=== PATIENT | female | born 1925 | race Caucasian/White ===

== ENCOUNTER 2017-02-14 14:46 | Inpatient (IN) | payer MEDICARE, OTHER ==
[2017-02-14 15:19] LABS: #Eosinphils 0.3 thou/uL (0.0-0.7); #Lymphocytes 1.7 thou/uL (1.20-3.40); #Monocytes 0.6 thou/uL (0.11-0.59); #Neutrophils 3.5 thou/uL (1.40-6.50); %Basophils 0.1 % (0.0-1.0); %Eosinophils 4.8 % (0.0-10.0); %Lymphocytes 27.8 % (21.0-51.0); %Monocytes 10.3 % (0.0-10.0); Hematocrit 36.9 % (36.0-47.0); Mean Platelet Volume 7.8 fL (7.4-10.4); Red Blood Cell (RBC) Count 3.75 mill/uL (4.20-5.40); White Blood Cell (WBC) Count 6.1 thou/uL (4.8-10.8)
[2017-02-14 15:44] LABS: ALT (SGPT) 14 U/L (8-55); AST (SGOT) 20 U/L (5-34); Alkaline Phosphatase 65 U/L (40-150); Anion Gap 15 mmol/L (10-20); BUN (Urea Nitrogen) 20 mg/dL (9.8-20.1); Bilirubin, Total 0.4 mg/dL (0.2-1.2); Calc. Creatinine Clearance 0 mL/min (70-130); Calcium 8.9 mg/dL (7.8-10.44); Carbon Dioxide 24 mmol/L (23-31); Chloride 105 mmol/L (98-107); Estimated GFR-MDRD 39; Globulin 2.8 g/dL (2.4-3.5); Protein, Total 6.4 g/dL (6.0-8.3)
[2017-02-14 15:46] LABS: Troponin I Less than 0.010 ng/mL (< 0.028)
--- NOTE | 2017-02-14 16:34 | CT ---
CT HEAD WITHOUT IV CONTRAST: Date: 02-14-17 History: Syncope just prior to arrival. Patient fell after passing out. Patient unconscious for 3-4 minutes. Abnormal breathing while unconscious. Vomiting. Comparison: 11-26-11 FINDINGS: There is decreased attenuation in the periventricular white matter, most likely reflective of chroni c small vessel ischemic changes which have mildly progressed from the prior exam. There is no acute cortical infarction, hemorrhage, mass effect, or midline shift. There is mild cerebral and cerebella r volume loss. The ventricular system is normal in size, shape, and position for the degree of sulca l atrophy. There has been no other interval change from prior exam. No calvarial fracture is seen. IMPRESSION: 1. No acute intracranial abnormalities demonstrated. 2. Moderate to severe chronic small vessel ischemic changes. 3. Cerebral and cerebellar volume loss. POS: ROSHAN
--- NOTE | 2017-02-14 16:47 | RAD ---
PORTABLE AP CHEST: Date: 02-14-17 History: Witnessed syncopal episode. Vomiting. Comparison: 11-26-11 FINDINGS: Cardiac silhouette and pulmonary vasculature are within normal limits. Lungs are clear. Vascular selma cifications are again seen in the thoracic aorta. There has been no interval change from the prior e xam. IMPRESSION: No acute cardiopulmonary process. POS: [facility]
[2017-02-14] MEDS ORDERED: Mag-Al 1200 mg/1200 mg/30 ML UDCUP PO PRN (17:05)
[2017-02-14] MEDS ORDERED: Nitroglycerin 0.4 MG TAB (25 Tab Bottle) SL PRN (17:05)
[2017-02-14] MEDS ORDERED: Loratadine 10 MG TAB PO PRN (17:05)
[2017-02-14] MEDS ORDERED: Diabetic Tussin 200 MG/10 ML UDCUP PO PRN (17:05)
[2017-02-14] MEDS ORDERED: Ondansetron HCl/PF 4 MG/2 ML Vial IVP PRN (17:05)
[2017-02-14] MEDS ORDERED: Senokot 8.6 MG TAB PO PRN (17:05)
[2017-02-14] MEDS ORDERED: cloNIDine HCl 0.1 MG TAB PO PRN (17:05)
[2017-02-14] MEDS ORDERED: Acetaminophen 325 MG TAB PO PRN (17:05)
[2017-02-14] MEDS ORDERED: Bisacodyl 5 MG TAB PO PRN (17:05)
[2017-02-14] MEDS ORDERED: Benzonatate 100 MG CAP PO PRN (17:05)
[2017-02-14 18:49] LABS: Troponin I Less than 0.010 ng/mL (< 0.028)
[2017-02-14 19:18] VITALS: BMI 18.1
--- NOTE | 2017-02-14 19:36 | HP ---
DATE OF ADMISSION: 02/14/2017 PRIMARY CARE PHYSICIAN: Dr. Narayanan at [facility]. CHIEF COMPLAINT: Syncope. HISTORY OF PRESENTING ILLNESS: Ms. Summers is a very pleasant 89-year-old female, who was brought in by her care provider for complaints of passing out. History is mainly obtained by the pa arturo herself, who has regained consciousness and is awake, alert, and oriented x4. Electronic [facility] records have been reviewed and the case has been discussed with the attending ER physician. According to Ms. Summers, she lives in [facility] and has a care provider. They walk twice or three times a day. She walks with a help of a walker and has been feeling fine without any recent illnesses. She does not have any dizziness, lightheadedness, palpitations, ches t pain, shortness of breath this morning. While walking with the wood ski maker, she passed out and fell to the floor. She does not remember how long she was out for, but the report was that she was out for a few minutes and seemingly had some trouble breathing. Eventually, she came to and vomited. E MS was called and then she was brought to the hospital. By the time, she was seen in the emergency room, she was back to her baseline with normal mentation. She is otherwise very sharp and very acti ve with the help of the wood ski maker at home. She denies any recent illnesses. She denies any dysuria. She denies any nausea, vomiting, diarrhea or abdominal pain. She denies similar symptoms in the past. CT scan and chest x-ray was done in the emergency room and both were unremarkable. She does have ev idence of chronic small vessel ischemic changes on the CT scan of the brain, but nothing acute. Ser um chemistries are also unremarkable except for creatinine elevated at 1.30 with her baseline being normal. Cardiac enzymes are normal. She is now being admitted for syncope workup. PAST MEDICAL HISTORY: 1. Fibromyalgia. 2. Osteoarthritis. 3. Hypertension. 4. Hypothyroidism. PAST SURGICAL HISTORY: Include: 1. Hysterectomy. 2. Bladder suspension. 3. Cataract removal. 4. Colonoscopy. ALLERGIES: No known medication allergies. MEDICATIONS: Levothyroxine 75 mcg daily, Lexapro 20 mg daily, Wellbutrin 150 mg daily, losartan 50 mg daily, Lyrica 75 mg daily, trazodone 50 mg daily. They further will be confirmed. SOCIAL HISTORY: She lives in [facility] with the help of a wood ski maker. N o history of drug, tobacco or alcohol abuse. Her medical power of attorney law clerk is her daughter, who fahad es in [place]. CODE STATUS: Do not resuscitate, do not intubate. I have discussed this with the patient herself. FAMILY HISTORY: Significant for coronary artery disease. REVIEW OF SYSTEMS: The following complete review of systems was negative, unless otherwise mention ed in the HPI or below: CONSTITUTIONAL: Weight loss or gain, ability to conduct usual activities. SKIN: Rash, itching. EYES: Double vision, pain. ENT/MOUTH: Nose bleeding, neck stiffness, pain, tenderness. CARDIOVASCULAR: Palpitations, dyspnea on exertion, orthopnea. RESPIRATORY: Shortness of breath, wheezing, cough, hemoptysis, fever or night sweats. GASTROINTESTINAL: Poor appetite, abdominal pain, heartburn, nausea, vomiting, constipation, or diar jonnie. GENITOURINARY: Urgency, frequency, dysuria, nocturia. MUSCULOSKELETAL: Pain, swelling. NEUROLOGIC/PSYCHIATRIC: Anxiety, depression. ALLERGY/IMMUNOLOGIC: Skin rash, bleeding tendency. It is negative for expect for those mentioned in the history and physical. LABORATORY DATA: Her CBC is unremarkable. Hemoglobin 12.4. Serum chemistries show BUN 20 with cre atinine of 1.30. Blood sugar 127, magnesium is 2. Cardiac enzymes are normal. Liver enzymes are n ormal. Chest x-ray by my review has no evidence to suggest pulmonary infiltrate, effusion or edema. Cardiac silhouette is within normal limits. CT scan of the brain shows chronic small vessel ische hanh changes without anything acute. A 12 lead EKG showed normal sinus rhythm without any QT prolong ation. No ST or T-wave changes. PHYSICAL EXAMINATION: VITAL SIGNS: Blood pressure 132/67, pulse of 63, saturating 94% on room air, respirations 16, tempe rature 97.4. GENERAL: She appears age appropriate. Appears awake, alert and oriented x3, in no acute distress. Appears well nourished and well kempt. HEENT: Mucous membrane is moist and pink. No oropharyngeal exudate or erythema. Head is normoceph alic, atraumatic. Pupils equal, reactive to light and accommodation. Extraocular movements intact. NECK: Supple without any lymphadenopathy, JVD or bruit. CHEST: Clear to auscultation without any wheezing, rales or rhonchi. CARDIOVASCULAR: Rate and rhythm is regular without any murmur, rubs or gallops. ABDOMEN: Soft, nontender, nondistended with positive bowel sounds. EXTREMITIES: Free of any cyanosis, clubbing, or edema. NEUROLOGIC: Nonfocal. SKIN: Free of any rashes or bruises. Feels warm and dry to touch. PSYCHIATRIC: Patient appears euthymic with normal affect. VASCULAR: +2 pedal pulses felt bilaterally. IMPRESSION AND PLAN: 1. Syncope. The patient's presentations are suggestive of some sort of cardiac event. She had raymundo e sort of agonal breathing per report with the syncope. She will be admitted to telemetry [facility] for any arrhythmias at this time. We will obtain a transthoracic echocardiogram to rule out cardi omyopathy as well as valvular dysfunction. We will also obtain MRI of the brain to rule out stroke or masses and also obtain a carotid Doppler ultrasound to rule out circulation problems to the poste rior part. She will be resuscitated with IV fluids as some dehydration is evident by elevated creat inine. Otherwise, she is hemodynamically stable. We will also continue to trend serial cardiac enz ymes. The possibility of acute coronary syndrome is less likely at this time. We will also obtain a urinalysis to rule out urinary tract infection. Recheck labs in the morning and start her on fall and aspiration precautions. 2. History of hypothyroidism. We will restart her Synthroid once the dosage is confirmed. 3. Acute kidney insufficiency, likely due to vomiting today. She will be started on IV fluids and we will avoid nephrotoxic medications and recheck in the morning. 4. Deconditioning. We will request OT and PT to evaluate the patient. 5. History of hypertension. Resume home medications once confirmed. 6. Deep venous thrombosis and gastrointestinal prophylaxis. 7. CODE STATUS: DO NOT RESUSCITATE, DO NOT INTUBATE. DISPOSITION: The patient will be admitted to telemetry unit for syncopal episode. Further manageme nt will depend upon her clinical course. Estimated length of stay at this time is about 2-3 midnigh ts.
--- NOTE | 2017-02-14 21:28 | ULT ---
CAROTID ULTRASOUND WITH HARO SCALE AND DOPPLER DUPLEX COLOR FLOW IMAGING SPECTRAL ANALYSIS PERFORMED: 02/14/17 CLINICAL INDICATION: Syncope. FINDINGS: There is scattered mild atherosclerotic calcification of the carotid arteries. PEAK SYSTOLIC VELOCITY (CM/S): Right CCA 151 Left CCA 156 Right ICA 89 Left ICA 76 There is antegrade flow within the visualized bilateral vertebral arteries. IMPRESSION: 1. No hemodynamically significant stenosis of the right internal carotid artery. 2. No hemodynamically significant stenosis of the left internal carotid artery. POS: LAKISHA
[2017-02-14 21:58] LABS: Troponin I Less than 0.010 ng/mL (< 0.028)
[2017-02-14] MEDS: Sodium Chloride 0.9% 1,000 ML IV SCH (22:39)
[2017-02-14 23:35] LABS: Bilirubin Negative (Negative); Blood, Urine Negative (Negative); Glucose, Urine (Dipstick) Negative (Negative); Ketone, Urine Negative (Negative); Nitrite Negative (Negative); Protein, Urine (Dipstick) Trace mg/dL (Neg-Trace); Urobilinogen 0.2 mg/dL (0.2-1.0)
[2017-02-14 23:38] LABS: Bacteria/HPF Rare-Few HPF (None Seen); Hyaline Casts/LPF 0-3 HYALINE CAST LPF (0-3 Hyaline); Squamous Epithelial 0-3 HPF (0-3); WBC/HPF 0-3 HPF (0-3)
[2017-02-15 06:09] LABS: #Eosinphils 0.1 thou/uL (0.0-0.7); #Lymphocytes 2.4 thou/uL (1.20-3.40); #Monocytes 0.9 thou/uL (0.11-0.59); #Neutrophils 8.1 thou/uL (1.40-6.50); %Eosinophils 0.7 % (0.0-10.0); %Lymphocytes 21.2 % (21.0-51.0); %Monocytes 7.4 % (0.0-10.0); Mean Platelet Volume 8.3 fL (7.4-10.4); Red Blood Cell (RBC) Count 3.72 mill/uL (4.20-5.40); White Blood Cell (WBC) Count 11.5 thou/uL (4.8-10.8)
[2017-02-15 06:35] LABS: Anion Gap 11 mmol/L (10-20); BUN (Urea Nitrogen) 19 mg/dL (9.8-20.1); Calc. Creatinine Clearance 32 mL/min (70-130); Calcium 8.7 mg/dL (7.8-10.44); Carbon Dioxide 24 mmol/L (23-31); Chloride 108 mmol/L (98-107); Estimated GFR-MDRD 53
[2017-02-15] MEDS: Bupropion 150 MG XL TAB PO SCH (09:28)
[2017-02-15] MEDS: Enoxaparin Sodium 30 MG/0.3 ML SYRINGE SC SCH (09:29)
[2017-02-15] MEDS: Levothyroxine Sodium 75 MCG TAB PO SCH (09:30)
[2017-02-15] MEDS: Escitalopram Oxalate 20 mg Tablet PO SCH (09:30)
[2017-02-15] MEDS: cefTRIAXone\\ROCEPHIN 1 GM in Sodium Chloride 0.9% 100 ML IVPB SCH (09:36)
[2017-02-15] MEDS: Sodium Chloride 0.9% 1,000 ML IV SCH (09:36)
--- NOTE | 2017-02-15 13:37 | PDOC.PN ---
- Subjective Encounter Start Date: 02/15/17 Encounter Start Time: 13:35 Subjective: feels much better. walked w Pt .no dizziness -: no chest pain/palpitations/SOB/LOPEZ. -: no fever/chills - Objective Resuscitation Status: Resuscitation Status DNR:Do Not Resuscitate MAR Reviewed: Yes Vital Signs & Weight: Vital Signs (12 hours) Temp Pulse Pulse Pulse Resp BP BP 02/15/17 12:27 98.4 F 94 20 02/15/17 10:20 62 75 138/63 146/63 H 02/15/17 08:00 98.2 F 61 18 02/15/17 07:57 98.2 F 61 18 02/15/17 07:56 98.2 F 61 18 02/15/17 04:00 98.6 F 81 18 BP BP BP Pulse Ox Pulse Ox Pulse Ox 02/15/17 12:27 158/67 H 94 L 02/15/17 10:20 95 93 L 02/15/17 08:00 94 L 02/15/17 07:57 145/66 H 119/56 L 113/55 L 94 L 02/15/17 07:56 145/66 H 93 L 02/15/17 04:00 149/64 H 94 L Weight Weight 116 lb 3.2 oz I&O: 02/14/17 02/15/17 02/16/17 06:59 06:59 06:59 Intake Total 1011 Output Total 220 Balance 791 Result Diagrams: 02/15/17 05:19 02/15/17 05:19 Additional Labs: Microbiology 02/15/17 12:03 Nasopharynx - Nares Influenza Types A,B Direct EIA - Final Radiology Reviewed by me: Yes (Carotid doppler-no stenosis.ECHO-EF 60%.severe TR.Mod RI,MR) Phys Exam - Physical Examination Constitutional: NAD HEENT: PERRLA, moist MMs, sclera anicteric, TM's clear, oral pharynx no lesions , 2+ tonsils Neck: no nodes, no JVD, supple, full ROM Respiratory: no wheezing, no rales, no rhonchi, wheezing present, clear to auscultation bilateral Dx/Plan (1) Syncope and collapse Code(s): R55 - SYNCOPE AND COLLAPSE Status: Acute (2) EV (acute kidney injury) Code(s): N17.9 - ACUTE KIDNEY FAILURE, UNSPECIFIED Status: Resolved (3) Fever Code(s): R50.9 - FEVER, UNSPECIFIED Status: Acute Comment: low grade (4) Hypothyroid Code(s): E03.9 - HYPOTHYROIDISM, UNSPECIFIED Status: Chronic (5) Orthostatic hypotension Code(s): I95.1 - ORTHOSTATIC HYPOTENSION Status: Acute (6) HTN (hypertension) Code(s): I10 - ESSENTIAL (PRIMARY) HYPERTENSION Status: Chronic - Plan 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 -: syncope likley due to orthostatic hypotension.monitor.restart meds w cautio -: MRI brain pending.ECHO suggests prob diastolic dysFx but Pt asymptomatic -: arrange HH when ready for DC * . Review of Systems - Review of Systems Constitutional: negative: Fever, Chills, Sweats, Weakness, Malaise, Other Respiratory: negative: Cough, Dry, Shortness of Breath, Hemoptysis, SOB with Excertion, Pleuritic Pain, Sputum, Wheezing Cardiovascular: negative: Chest Pain, Palpitations, Orthopnea, Paroxysmal Noc. Dyspnea, Edema, Light Headedness, Other Gastrointestinal: negative: Nausea, Vomiting, Abdominal Pain, Diarrhea, Constipation, Melena, Hematochezia, Other Genitourinary: negative: Dysuria, Frequency, Incontinence, Hematuria, Retention , Other Musculoskeletal: negative: Neck Pain, Shoulder Pain, Arm Pain, Back Pain, Hand Pain, Leg Pain, Foot Pain, Other Neurological: negative: Weakness, Numbness, Incoordination, Change in Speech, Confusion, Seizures, Other - Medications/Allergies Allergies/Adverse Reactions: Allergies Allergy/AdvReac Type Severity Reaction Status Date / Time No Known Allergies Allergy Verified 02/15/17 00:55 Medications: Current Medications Acetaminophen (Tylenol) 650 mg PO Q4H PRN PRN Reason: Headache/Fever or Pain Last Admin: 02/14/17 22:59 Dose: 650 mg Al Hydroxide/Mg Hydroxide (Maalox) 30 ml PO Q6H PRN PRN Reason: Heartburn or Indigestion Benzonatate (Tessalon) 100 mg PO Q4H PRN PRN Reason: Cough Bisacodyl (Dulcolax) 10 mg PO DAILYPRN PRN PRN Reason: Constipation Bupropion HCl (Wellbutrin Xl) 150 mg PO DAILY [facility] Last Admin: 02/15/17 09:28 Dose: 150 mg Clonidine HCl (Catapres) 0.1 mg PO Q4H PRN PRN Reason: Systolic BP > 160 Donepezil HCl (Aricept) 10 mg PO HS [facility] Enoxaparin Sodium (Lovenox) 30 mg SC 0900 [facility] Last Admin: 02/15/17 09:29 Dose: 30 mg Escitalopram Oxalate (Lexapro) 20 mg PO DAILY [facility] Last Admin: 02/15/17 09:30 Dose: 20 mg Guaifenesin (Robitussin Sf) 200 mg PO Q4H PRN PRN Reason: Cough Hydralazine HCl (Apresoline) 10 mg SLOW IVP Q4H PRN PRN Reason: Systolic BP > 170 Sodium Chloride (Normal Saline 0.9%) 1,000 mls @ 75 mls/hr IV .[id number] [facility] Last Admin: 02/15/17 09:36 Dose: 1,000 mls Ceftriaxone Sodium 1 gm/ (Sodium Chloride) 100 mls @ 200 mls/hr IVPB Q24HR [facility] Last Admin: 02/15/17 09:36 Dose: 100 mls Levothyroxine Sodium (Synthroid) 75 mcg PO QAM [facility] Last Admin: 02/15/17 09:30 Dose: 75 mcg Loratadine (Claritin) 10 mg PO DAILYPRN PRN PRN Reason: Sinus Symptoms Memantine (Namenda) 10 mg PO DAILY [facility] Last Admin: 02/15/17 09:30 Dose: 10 mg Nitroglycerin (Nitrostat) 0.4 mg SL Q5MIN PRN PRN Reason: Chest Pain Ondansetron HCl (Zofran) 4 mg IVP Q6H PRN PRN Reason: Nausea/Vomiting Pregabalin (Lyrica) 75 mg PO HS [facility] Senna (Senokot) 2 tab PO HSPRN PRN PRN Reason: Constipation Sodium Chloride (Flush - Normal Saline) 10 ml IVF Q12HR [facility] Last Admin: 02/15/17 09:30 Dose: Not Given Sodium Chloride (Flush - Normal Saline) 10 ml IVF PRN PRN PRN Reason: Saline Flush Trazodone HCl (Desyrel) 50 mg PO HS [facility]
--- NOTE | 2017-02-15 17:04 | MRI ---
BRAIN MRI NONCONTRAST: Date: 02/15/17 INDICATION: Syncope. FINDINGS: There is parenchymal volume loss with compensatory dilatation of the ventricular system. There is no midline shift. No evidence of acute territorial infarction. There is moderate to severe chronic hanh rovascular ischemic disease. Skull base flow-voids are patent. There is bilateral mastoid fluid and mucosal thickening of the paranasal sinuses seen. IMPRESSION: 1. No acute territorial infarction or intracranial mass effect. 2. Additional findings are detailed above. POS: ROSHAN
[2017-02-15] MEDS ORDERED: traZODone HCl 50 MG TAB PO SCH (21:00)
[2017-02-15] MEDS ORDERED: Pregabalin 75 MG CAP PO SCH (21:00)
[2017-02-15] MEDS ORDERED: Donepezil HCl 10 MG TAB PO SCH (21:00)
[2017-02-16] MEDS: Sodium Chloride 0.9% 1,000 ML IV SCH ×2 (01:29→12:36)
[2017-02-16 05:34] LABS: #Eosinphils 0.1 thou/uL (0.0-0.7); #Lymphocytes 1.7 thou/uL (1.20-3.40); #Monocytes 0.9 thou/uL (0.11-0.59); #Neutrophils 5.1 thou/uL (1.40-6.50); %Basophils 0.5 % (0.0-1.0); %Eosinophils 1.1 % (0.0-10.0); %Lymphocytes 21.7 % (21.0-51.0); %Monocytes 11.9 % (0.0-10.0); Hematocrit 36.3 % (36.0-47.0); Mean Platelet Volume 8.1 fL (7.4-10.4); Red Blood Cell (RBC) Count 3.73 mill/uL (4.20-5.40); White Blood Cell (WBC) Count 7.8 thou/uL (4.8-10.8)
[2017-02-16 05:54] LABS: Anion Gap 10 mmol/L (10-20); BUN (Urea Nitrogen) 13 mg/dL (9.8-20.1); Calc. Creatinine Clearance 41 mL/min (70-130); Calcium 8.6 mg/dL (7.8-10.44); Carbon Dioxide 22 mmol/L (23-31); Chloride 111 mmol/L (98-107); Estimated GFR-MDRD 70
[2017-02-16] MEDS ORDERED: Losartan Potassium 25 MG TAB PO SCH (09:00)
[2017-02-16] MEDS: Bupropion 150 MG XL TAB PO SCH (09:06)
[2017-02-16] MEDS: Escitalopram Oxalate 20 mg Tablet PO SCH (09:06)
[2017-02-16] MEDS: Levothyroxine Sodium 75 MCG TAB PO SCH (09:07)
[2017-02-16] MEDS: Enoxaparin Sodium 30 MG/0.3 ML SYRINGE SC SCH (09:07)
[2017-02-16] MEDS: cefTRIAXone\\ROCEPHIN 1 GM in Sodium Chloride 0.9% 100 ML IVPB SCH (09:14)
[2017-02-16 13:09] VITALS: TEMP 98.9
[2017-02-16 13:14] VITALS: BP 144/60
--- NOTE | 2017-02-16 19:10 | DIS ---
DATE OF ADMISSION: 02/14/2017 DATE OF DISCHARGE: 02/16/2017 PRIMARY CARE PHYSICIAN: Dr. Corey Narayanan. DISCHARGE DIAGNOSES: 1. Orthostatic hypotension. 2. Syncope secondary to #1. 3. Early urinary tract infection. 4. Acute kidney injury, resolved. 5. Hypothyroidism. 6. Hypertension. DISCHARGE MEDICATIONS: Trazodone 50 mg daily, Lyrica 75 mg daily, donepezil 10 mg daily, memantine 10 mg daily, losartan new dose 25 mg daily, Limbrel 500 mg p.o. b.i.d., bupropion XL 150 mg daily, S ynthroid 75 mcg daily, and Lexapro 20 mg daily. New medication nitrofurantoin 50 mg q.i.d., for 4 m ore days. PROCEDURES DONE IN THE HOSPITAL: Include; 1. CT scan of the brain upon admission, which showed moderate to severe chronic small vessel ischem ic changes in cerebral and cerebellar volume loss, otherwise no acute intracranial abnormality. 2. Chest x-ray upon admission which was unremarkable. 3. Carotid Doppler ultrasound which was negative for any hemodynamically significant stenosis bilat erally. 4. MRI of the brain, which is negative for any acute infarction or mass effect. Moderate to chroni c PROCEDURES: 1. MRI of the brain is negative for any acute infarction or mass effect. 2. Transthoracic echocardiogram, which showed preserved ejection fraction of 60% -65%, but with mod erate mitral and pulmonic regurgitation, severe tricuspid regurgitation. ADMISSION HISTORY: Ms. 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 Upon presentation, her symptoms have resolved and she was awake, alert, oriented x3. A CT scan of the brain and chest x-ray and 12-lead EKG and card iac enzymes were done in the ER and were normal. She was admitted on telemetry for further evaluati on. Please see admission history and physical for further details. HOSPITAL COURSE: The patient was started on normal saline and orthostatics were checked. She was f ound to be significantly orthostatic with supine hypertension and hypotension on sitting position. She underwent workup including carotid Doppler ultrasound, transthoracic echocardiogram, and MRI of the brain. All of the imaging studies were unremarkable as above. At this time, her losartan dose has been decreased. She underwent a urine culture and blood cultures. Blood cultures have been neg ative till date. Influenza testing is negative and urine culture is pending. She did have one epis ode of low grade fever with some leukocytosis from her white cell count going up from 6.1-11.5 witho ut any left shift. Given these findings, she was empirically started on Rocephin as her urinalysis also showed some leukocyte esterase. At this time, the urine culture is pending and she will be emp irically treated with oral nitrofurantoin. She is instructed to follow up with her primary care angella deshpande with the results of the urine and blood cultures. She was seen and examined prior to discharge and is hemodynamically stable and eager to go home. Michelle benítez is still orthostatic, but with supine hypertension. For this reason, her losartan is reduced and she is instructed to take it towards the end of the day. She was given instructions to carefully ge t up from the supine position and take it rather slow. At this time, I am refraining from starting her on any pharmacological measures for her orthostatic hypotension given her high blood pressure on lying position. She will follow up with her primary care physician. She is instructed to stay hyd rated throughout the day. PHYSICAL EXAMINATION: VITAL SIGNS: Today include, temperature of 98.4, pulse of 68, respirations 20, saturating 93% - 96% on room air, blood pressure 175/77 and then 152/69 in supine position. GENERAL: No acute distress, awake, alert, oriented x3. She appears younger than her stated age and well nourished. Daughter is at the bedside. CHEST: Clear to auscultation without any wheezing, rales or rhonchi. Rate and rhythm is regular wi thout any murmur, rubs or gallops. ABDOMEN: Soft, nontender, nondistended, positive bowel sounds. LABORATORY EXAMINATION: Troponin less than 0.010 x3. TSH 1.295. Liver enzymes within normal limit s. CBC shows WBCs 7.8 with 64% neutrophils, platelet 167,000; hemoglobin 12.1. Urine culture and b lood cultures are pending at this time for final results. She will follow up with her primary care physician. Discharge plan was discussed with the patient a nd her daughter, who verbalized understanding. Total time spent 31 minutes.
== END 2017-02-16 15:02 | disposition home health service (06) | DRG 312 ==
LOC: ERS 14:46 → 2NO 18:39
PROVIDERS: ADMIT Internal Medicine; ATTEND Internal Medicine
DX: I95.1 Orthostatic hypotension (principal); N17.9 Acute kidney failure, unspecified; N39.0 Urinary tract infection, site not specified; E03.9 Hypothyroidism, unspecified; I10 Essential (primary) hypertension; M19.90 Unspecified osteoarthritis, unspecified site; Z66 Do not resuscitate; M79.7 Fibromyalgia
CPT/HCPCS: 36415; 70450; 70551; 71010; 80048; 80053; 81001; 82553; 83735; 84443; 84484; 85025; 87040; 87086; 93005; 93306; 93880; A4216; G8978-GP-CJ; G8979-GP-CH; G8987-GO-CJ; G8988-GO-CH; J0360; J0696; J1650; J2405; J7050

== ENCOUNTER 2017-04-28 06:33 | Inpatient (IN) | payer MEDICARE ==
[2017-04-28] MEDS ORDERED: Morphine 4 MG/ML VIAL ONE (07:05)
[2017-04-28 07:09] LABS: #Eosinphils 0.5 thou/uL (0.0-0.7); #Lymphocytes 3.8 thou/uL (1.20-3.40); #Monocytes 1.1 thou/uL (0.11-0.59); #Neutrophils 6.4 thou/uL (1.40-6.50); %Basophils 0.4 % (0.0-1.0); %Eosinophils 4.1 % (0.0-10.0); %Lymphocytes 32.2 % (21.0-51.0); Mean Platelet Volume 7.8 fL (7.4-10.4); Red Blood Cell (RBC) Count 3.93 mill/uL (4.20-5.40); White Blood Cell (WBC) Count 11.8 thou/uL (4.8-10.8)
[2017-04-28 07:22] LABS: PTT 27.4 SEC (22.9-36.1); Prothrombin Time 13.4 SEC (12.0-14.7)
[2017-04-28 07:46] LABS: ALT (SGPT) 19 U/L (8-55); AST (SGOT) 23 U/L (5-34); Alkaline Phosphatase 70 U/L (40-150); Anion Gap 13 mmol/L (10-20); BUN (Urea Nitrogen) 19 mg/dL (9.8-20.1); Bilirubin, Total 0.5 mg/dL (0.2-1.2); Calc. Creatinine Clearance 0 mL/min (70-130); Calcium 9.3 mg/dL (7.8-10.44); Carbon Dioxide 24 mmol/L (23-31); Chloride 106 mmol/L (98-107); Estimated GFR-MDRD 45; Globulin 2.7 g/dL (2.4-3.5); Lipase 42 U/L (8-78); Protein, Total 6.4 g/dL (6.0-8.3)
--- NOTE | 2017-04-28 07:51 | RAD ---
PORTABLE AP CHEST XRAY: DATE: 04/28/17. HISTORY: Left hip injury after a fall. Left hip pain. COMPARISON: 02/14/17. FINDINGS: Cardiac silhouette and pulmonary vasculature are within normal limits. Vascular calcifications are s een in the thoracic aorta. There is minimal patchy density at the left lung base which may be relate d to atelectasis, but developing area of pneumonitis could not be entirely excluded. Minimal linear densities are seen in the right mid lung zone which may be related to atelectasis or minimal scarring . Lungs are otherwise clear. No other interval change. IMPRESSION: Minimal patchy density at the lateral left lung base which may be related to either atelectasis or de veloping area of pneumonitis. Followup PA and lateral chest x-ray would be helpful for further evalu ation. POS: Hillary
--- NOTE | 2017-04-28 08:04 | RAD ---
AP VIEW PELVIS: DATE: 04/28/17. HISTORY: Left hip injury after a fall. The patient reports getting up to go to the bathroom with walker and l ost balance and got tangled in wheel of walker causing the patient to fall. The patient now has left hip pain. FINDINGS: There is an intertrochanteric left hip fracture with varus angulation of the fracture fragments. No additional fracture is identified. There is no dislocation. Degenerative changes are seen in the sp ine. Vascular calcifications and phleboliths overlie the pelvis. IMPRESSION: Angulated left intertrochanteric hip fracture. POS: C
--- NOTE | 2017-04-28 08:04 | RAD ---
LEFT HIP: Two views. HISTORY: Injury to left hip with pain. FINDINGS/IMPRESSION: There is an intertrochanteric fracture at the left hip with mild displacement and angulation. POS: ROSHAN
[2017-04-28] MEDS ORDERED: Ondansetron HCl/PF 4 MG/2 ML Vial IVP PRN (10:17)
[2017-04-28] MEDS ORDERED: Ondansetron ODT 4 MG TAB PO PRN (10:17)
[2017-04-28] MEDS ORDERED: Dextrose 5 %-0.45 % NaCl 1,000 ML IV SCH (10:30)
[2017-04-28] MEDS ORDERED: Dextrose 50% Abboject 50 ML SYRINGE SLOW IVP PRN (10:50)
[2017-04-28] MEDS ORDERED: hydrALAZINE 20 MG/ML VIAL SLOW IVP PRN (10:50)
[2017-04-28] MEDS ORDERED: Dextrose 5% in Water 1,000 ML IV PRN (10:50)
[2017-04-28] MEDS: D5 1/2 NS w/20 mEq KCL 1,000 ML IV SCH ×2 (12:04→20:43)
[2017-04-28] MEDS ORDERED: Morphine 4 MG/ML VIAL SLOW IVP SCH (14:15)
[2017-04-28] MEDS ORDERED: Milk Of Magnesia 30 ML UDCUP PO PRN (14:40)
[2017-04-28] MEDS ORDERED: Bisacodyl 5 MG TAB PO PRN (14:40)
[2017-04-28] MEDS ORDERED: traZODone HCl 50 MG TAB PO PRN (14:40)
[2017-04-28] MEDS ORDERED: Loperamide HCl 2 MG CAP PO PRN (14:40)
[2017-04-28] MEDS ORDERED: Benzonatate 100 MG CAP PO PRN (14:40)
[2017-04-28] MEDS ORDERED: Morphine 4 MG/ML VIAL SLOW IVP PRN (14:42)
--- NOTE | 2017-04-28 14:56 | HP ---
DATE OF ADMISSION: 04/28/2017 ADMITTING PHYSICIAN: Dr. Kwan Tubbs. CONSULTING PHYSICIAN: Dr. Sanchez, Orthopedics; Dr. Wu, Cardiology and Hospital Medicine. HISTORY OF PRESENT ILLNESS: Patient is an 89-year-old female, who was in her usual state of health this morning when she was ambulating to the bathroom with her walker in her assisted living apartment. She reports she got her legs tangled up in her walker and fell to the ground line landing on her left hip. She was able to use her alert button to summon help. She was then transported to [facility] via EMS. She has remained hemodynamically stable and neurologically intact during transport and evaluation. She complains of left hip pain that is worsened with movement and palpation. Current severity of pain is 10/10 with movement. She states she fell approximately 3 years ago as well. Fall did not result in fracture or injury. The patient is not an accurate historian. She does relate a history of hypertension. Review of the record from admission in 02/2017. PAST MEDICAL HISTORY: 1. Fibromyalgia. 2. Osteoarthritis. 3. Hypertension. 4. Hypothyroidism. PAST SURGICAL HISTORY: 1. Hysterectomy. 2. Bladder suspension. 3. Cataract removal. 4. Colonoscopy. SOCIAL HISTORY: Patient denies drugs, alcohol, or tobacco use. She states she lives in [facility] assisted living facility in her own apartment. FAMILY HISTORY: Patient relates that mother at an early age from rabies. Father, sister, and brother have all had unknown heart problems. REVIEW OF SYSTEMS: CONSTITUTIONAL: The patient denies weight loss or gain. Denies fever, chills or change in appetite. HEENT: Denies any current problems. No change in vision. CARDIOVASCULAR: The patient reports that she has had irregular heart rate since admission to the ER today. She denies ever having a history of irregular heartbeat. RESPIRATORY: Denies shortness of breath, wheezing, or cough. GASTROINTESTINAL: Denies nausea, vomiting, diarrhea or constipation. MUSCULOSKELETAL: Reports pain to the left lateral thigh area with movement. No sensory deficit. NEUROLOGIC: Denies any focal weakness. No seizures. LABORATORY DATA: CBC: WBC 11.8, RBC 3.93, hemoglobin 12.9, hematocrit 38.0, and platelets 204. Coags: PT 13.4, INR 1.0, aPTT 27.4. Chemistry: Sodium 139 , potassium 3.7, chloride 106, carbon dioxide 24, anion gap 13, BUN 19, creatinine 1.14 and glucose 100. DIAGNOSTIC IMAGING: Left hip intertrochanteric fracture with mild displacement and angulation. CURRENT MEDICATIONS: Bupropion 150 mg p.o. daily, donepezil 10 mg p.o. at bedtime, escitalopram 20 mg p.o. daily, Duexis 1 tablet p.o. at bedtime, levothyroxine 75 mcg p.o. q.a.m., losartan 25 mg p.o. at bedtime, memantine 10 mg p.o. at bedtime, Lyrica 75 mg p.o. at bedtime and trazodone 50 mg p.o. at bedtime. PHYSICAL EXAMINATION: VITAL SIGNS: Blood pressure 137/71, pulse 87, respirations 17, temperature 98.4 , O2 sat 96% on room air. GENERAL: Elderly female in no acute distress. Nontoxic. HEENT: Normocephalic, atraumatic. PULMONARY: Respirations even and unlabored. Bilateral breath sounds. LUNGS: Clear to auscultation. CARDIOVASCULAR: Rate normal, irregular rhythm. Heart sounds normal. ABDOMEN: Soft, nontender, nondistended. EXTREMITIES: Pain with movement to the left hip. All other extremities within normal limits. Neurovascularly intact. Cap refill brisk. NEUROLOGIC: Awake, alert, oriented x3. GCS 15. Speech, normal. ASSESSMENT: 1. An 89-year-old female status post ground level fall. 2. Left intertrochanteric hip fracture. 3. New onset atrial fibrillation. PLAN: 1. Admit to telemetry floor by Trauma services. 2. Consult to Dr. Sanchez, Orthopedics. 3. Consult to Dr. Wu, Cardiology. 4. Consult to hospital medicine for general medical management. 5. N.p.o., IV fluids, IV analgesia. 6. Discussed code status with the patient. The patient reports she is DNR. I discussed with patient at length. History, review of systems, physical exam, assessment and plan were discussed with attending surgeon, Dr. Tubbs, who agrees. [facility]
[2017-04-28 15:43] VITALS: BMI 24.7
[2017-04-28] MEDS: Carvedilol 3.125 MG TAB PO SCH (16:13)
[2017-04-28] MEDS: HYDROcodone/Acetaminophen 5/325 mg Tablet PO PRN (16:13)
--- NOTE | 2017-04-28 16:54 | RAD ---
LEFT FEMUR 4 VIEWS: Date: 04/28/17 HISTORY: Left hip fracture. FINDINGS/IMPRESSION: There is displaced and angulated intertrochanteric fracture proximal left femur. Distal femur appears intact. The femoral condyles are not well evaluated due to poor positioning. POS: ROSHAN
[2017-04-28 16:59] LABS: Bilirubin Negative (Negative); Blood, Urine Negative (Negative); Glucose, Urine (Dipstick) Negative (Negative); Ketone, Urine Negative (Negative); Nitrite Negative (Negative); Protein, Urine (Dipstick) Negative (Neg-Trace); Urobilinogen 0.2 mg/dL (0.2-1.0)
[2017-04-28 17:02] LABS: Bacteria/HPF None Seen HPF (None Seen); Hyaline Casts/LPF 0-3 HYALINE CAST LPF (0-3 Hyaline); RBC/HPF 0-3 HPF (0-3); Squamous Epithelial None Seen HPF (0-3); WBC/HPF 0-3 HPF (0-3)
--- NOTE | 2017-04-28 17:49 | CON ---
DATE OF CONSULTATION: 04/28/2017 CHIEF COMPLAINT: Left hip pain. HISTORY OF PRESENT ILLNESS: Ms. Summers is status post fall. The patient has been on the walker last 1 to 1-1/2 years, history of recent falls and syncopal episodes. She rates her pain currently 5 to 8/10. The patient was consulted by General Surgery Trauma as well as the ER Dr. Reilly for left hip p ain. PAST MEDICAL HISTORY: Including hypertension, osteoarthritis, hypothyroidism, syncopal episodes, acu te renal failure, and fibromyalgia. PAST SURGICAL HISTORY: Hysterectomy, bladder suspension, cataract procedure, left elbow open reducti on internal fixation, not otherwise specified, and colonoscopy. ALLERGIES: Has no known drug allergies. MEDICATIONS: The patient's medication list includes levothyroxine, Lexapro, Wellbutrin, losartan, Ly williams, and trazodone. SOCIAL HISTORY: Nonsmoker, nondrinker, no alcohol. Currently lives in [facility]. The patient's daughter is the power of senior trial attorney and is at bedside. REVIEW OF SYSTEMS: Noncontributory except for above. PHYSICAL EXAMINATION: VITAL SIGNS: The patient is afebrile 140s-200s/76-80, heart rate 96% on room air. GENERAL: No acute distress. EXTREMITIES: Left lower extremity, the patient has decreased sensation in the left lower extremity. She has got plantar flexion, dorsiflexion and extends all her toes. The patient has soft compartmen ts. She has pain and effusion in her left knee. The patient has pain with internal and external rot ation of her left hip. She has got brisk cap refill in the left lower extremity. X-rays of her left hip and pelvis show left intertrochanteric hip fracture, displaced. LABORATORY DATA: H&H 12 and 38. INR 1, creatinine 1.17. EKG shows atrial fibrillation. IMPRESSION: 1. Left intertrochanteric hip fracture. 2. Hypertension. 3. Hypothyroidism. 4. Acute renal failure. 5. Fibromyalgia. 6. Atrial fibrillation. ASSESSMENT AND PLAN: The patient will be taken to the OR tomorrow and made n.p.o. The patient recei ashish tranexamic acid as well as Ancef per protocol. The patient received an intramedullary nailing fo r left hip. I discussed with family and the patient the risks and benefits of surgery to include hina n, scar, bleeding, infection, damage to vital structures, decreased range of motion or strength, frac ture above or below the stem, need for further surgeries, loss of life. I discussed the 6-month mort ality associated with the patient's left hip fracture. The family and the patient are aware of the r isks and benefits and elected to proceed.
[2017-04-28] MEDS: Famotidine/PF 20 mg/2ml Vial SLOW IVP SCH (20:40)
[2017-04-28] MEDS: Pregabalin 75 MG CAP PO SCH (20:41)
[2017-04-28] MEDS: Donepezil HCl 10 MG TAB PO SCH (20:42)
--- NOTE | 2017-04-28 21:25 | RAD ---
RADIOGRAPH LEFT KNEE 2 VIEWS: Date: 04/28/17 Time: 6:24 p.m. HISTORY: 89-year-old female with acute traumatic left knee pain due to fall. COMPARISON: None FINDINGS: In general, at least a three view study of any joint should be performed in cases of trauma, to incre ase the sensitivity for detection of mildly displaced and nondisplaced fractures. No obvious acute fr acture is identified. There is absence of much of the bone of the lateral femoral condyle and to a le sser degree lateral tibial plateau, resulting in significant widening of the lateral compartment join t space. There are chronic, undulating, sclerotic margins involving these deformities. There are mode rate degenerative changes at the medial compartment. There is diffuse severe osteopenia. There is mil d anterior suprapatellar soft tissue swelling. There are also moderate degenerative changes at the pa tellofemoral compartment. No definite acute fracture is identified. IMPRESSION: 1. Severe chronic loss of bone including articular surfaces, of the lateral compartment, perhaps representing sequela of prior fracture. 2. Moderate osteoarthrosis. 3. No definite acute fracture identified, but the sensitivity is decreased since this is only a two view study. POS: ROSHAN
--- NOTE | 2017-04-28 21:26 | CON ---
DATE OF CONSULTATION: 04/28/2017 CONSULTING SERVICE: Trauma Service. REASON FOR CONSULTATION: Medical management. HISTORY OF PRESENT ILLNESS: This is an 89-year-old female with a past medical history of dementia, f ibromyalgia, osteoarthritis and hypertension who came to the hospital with a fall. The patient was a t home, she lives in [facility] and this morning at 03:00 a.m., she had a fa ll. She did not lose conscious, but she felt like she tripped on something and hit her face and fell down. Since then, she has been having left hip pain and she had a hard time getting up. She was ta giovanna to the hospital and was found to have a left hip fracture and is having a surgery tomorrow. Meagan d physicians are consulted for medical management and the patient was also found to have new onset AF ib and cardiology is consulted. Denies any chest pain. No shortness of breath. No fever or chills. No nausea, vomiting or diarrhea. No constipation reported. No skin rash. PAST MEDICAL HISTORY: Positive for fibromyalgia, osteoarthritis, neuropathy, hypertension and hypoth yroidism. PAST SURGICAL HISTORY: Hysterectomy, bladder suspension, cataract removal, colonoscopy, tonsillectom y, and appendectomy. HOME MEDICATIONS: Include Duexis 1 p.o. at bedtime, memantine 10 mg p.o. at bedtime, losartan 25 mg, donepezil 10 mg, trazodone 50 mg, Lyrica 75 mg at bedtime, bupropion 150 mg p.o. daily, levothyroxin e 75 mg p.o. daily and citalopram and 10 daily. ALLERGIES: No drug allergies. CODE STATUS: DNR. SOCIAL HISTORY: She lives at [facility] and her daughter is the medical p ower of associate attorney. FAMILY HISTORY: Positive for heart disease. REVIEW OF SYSTEMS: The following complete review of systems was negative, unless otherwise mentioned in the HPI or below: CONSTITUTIONAL: Weight loss or gain, ability to conduct usual activities. SKIN: Rash, itching. EYES: Double vision, pain. ENT/MOUTH: Nose bleeding, neck stiffness, pain, tenderness. CARDIOVASCULAR: Palpitations, dyspnea on exertion, orthopnea. RESPIRATORY: Shortness of breath, wheezing, cough, hemoptysis, fever or night sweats. GASTROINTESTINAL: Poor appetite, abdominal pain, heartburn, nausea, vomiting, constipation, or diarr hea. GENITOURINARY: Urgency, frequency, dysuria, nocturia. MUSCULOSKELETAL: Pain, swelling. NEUROLOGIC/PSYCHIATRIC: Anxiety, depression. ALLERGY/IMMUNOLOGIC: Skin rash, bleeding tendency. PHYSICAL EXAMINATION: GENERAL: This is a thin-built elderly female in no apparent distress. VITAL SIGNS: Temperature 97.9, pulse 85, respiratory rate 18, and blood pressure is 119/77. HEENT: Atraumatic and normocephalic. Oral mucosa is moist. NECK: Supple. CARDIOVASCULAR: S1, S2 heard. Rate and rhythm regular. RESPIRATORY: Clear. GASTROINTESTINAL: Abdomen is obese. MUSCULOSKELETAL: Left hip with pain and tenderness. DERMATOLOGIC: No skin rash. NEUROLOGIC: Alert and awake. PSYCHIATRIC: Mood and affect normal. LABORATORY DATA: Potassium is 3.7 and hemoglobin is 12.9. Creatinine is 1.14. ASSESSMENT AND PLAN: 1. Left hip fracture with fall. No history of any loss of consciousness and left intertrochanteric fracture of the left hip with mild displacement. Orthopedic has already consulted for surgery tomorr ow n.p.o. after midnight. 2. Deep venous thrombosis prophylaxis per Surgery team. 3. Surgery team is also on the case. 4. History of hypertension. Blood pressure is stable. We will monitor blood pressure closely. 5. New onset atrial fibrillation. We will also consult Cardiology. Continue rate control medicatio ns for now as tolerated. 6. History of dementia. Continue home medications. 7. Osteoarthritis. 8. Hypothyroidism. Continue home medications. 9. N.p.o. after midnight surgery. Follow up with cardiology. The patient has moderate risk for laurne gerald. 10. Gastrointestinal/deep venous thrombosis prophylaxis. 11. P.R.N. order set. Thank you for the consult. We will follow perioperatively.
--- NOTE | 2017-04-28 22:01 | CON ---
DATE OF CONSULTATION: 04/28/2017 HISTORY: Melva Summers is an 89-year-old white female, who fell yesterday in an assisted living, suffering a left hip fracture. EKG in the emergency room was incorrectly interpreted by the computer as atrial fibrillation and Cardiology consultation was requested. Mrs. Summers denies ever having any type of cardiac problems. She denies any chest discomfort. She has never had a stress test. She did have an echocardiogram. She was in the hospital in 02/2017 and was found to have an ejection fraction of 60% to 65% with moderate mitral regurgitation, severe tricuspid regurgitation, and moderate pulmonic regurgitation. She does complain of exertional dyspnea. PAST MEDICAL HISTORY: Hypertension, hypothyroidism, fibromyalgia, osteoarthritis. OPERATIONS: Hysterectomy, bladder suspension, cataract surgery, tonsillectomy, palate surgery, elbow surgery, appendectomy. SOCIAL HISTORY: She does not smoke or drink. FAMILY HISTORY: Unknown heart problem in her father. REVIEW OF SYSTEMS: Twelve-point review of systems is unremarkable. PHYSICAL EXAMINATION: VITAL SIGNS: Blood [id number]/65, pulse 70. HEENT: PERRL. NECK: Supple. CHEST: Clear. CARDIAC: S1 and S2 are normal, without any S3 or S4. There is a 1/6 holosystolic murmur at the apex. ABDOMEN: Normal bowel sounds, without tenderness or organomegaly. EXTREMITIES: Revealed no clubbing, cyanosis, or edema. NEUROLOGIC: Grossly intact. SKIN: Warm and dry. LABORATORY DATA: EKG is incorrectly interpreted by the computer as being in atrial fibrillation. She is in sinus rhythm with premature atrial beats, as well as premature ventricular beats. Ever since being on the monitor in telemetry. She has been in sinus rhythm. Hemoglobin 12.9, hematocrit 38.0. White count 11,800, platelets 204,000. INR 1.0. Sodium 139, potassium 3.7, chloride 106, carbon dioxide 24, BUN 19, creatinine 1.14. IMPRESSION: 1. Normal sinus rhythm with premature atrial and premature ventricular complexes, not atrial fibrillation. 2. Fractured left hip. 3. Hypothyroidism. 4. Hypertension. PLAN: No therapy is required. She will continue to be monitored. She appears to be an acceptable cardiac risk for general anesthesia. IZZY
--- NOTE | 2017-04-28 23:43 | PRG ---
DATE: 04/28/2017 Melva Summers is an 89-year-old female who is suffering a left intertrochanteric hip fracture, noted t o have rate controlled atrial fibrillation on telemetry. Awaiting Cardiology consultation. Planning ORIF tomorrow. I agree with treatment plan as outlined by Dr. Sanchez and Elly York NP.
[2017-04-29] MEDS ORDERED: CEFAZOLIN/Water 2 GM/20 ML SYRINGE SLOW IVP SCH (04:00)
[2017-04-29] MEDS: Levothyroxine Sodium 75 MCG TAB PO SCH (06:09)
[2017-04-29] MEDS: Carvedilol 3.125 MG TAB PO SCH ×2 (06:09→18:07)
[2017-04-29] MEDS: D5 1/2 NS w/20 mEq KCL 1,000 ML IV SCH ×2 (06:09→17:13)
[2017-04-29 06:31] LABS: Band 1 % (5-11); Hematocrit 36.3 % (36.0-47.0); Neutrophil 64 % (42-75); Red Blood Cell (RBC) Count 3.71 mill/uL (4.20-5.40); White Blood Cell (WBC) Count 8.7 thou/uL (4.8-10.8)
[2017-04-29 06:33] LABS: Anion Gap 11 mmol/L (10-20); BUN (Urea Nitrogen) 14 mg/dL (9.8-20.1); Calc. Creatinine Clearance 42 mL/min (70-130); Carbon Dioxide 25 mmol/L (23-31); Chloride 107 mmol/L (98-107); Estimated GFR-MDRD 51
[2017-04-29] MEDS: HYDROcodone/Acetaminophen 5/325 mg Tablet PO PRN (07:08)
[2017-04-29] MEDS ORDERED: CEFAZOLIN/Water 2 GM/20 ML SYRINGE ONE (07:48)
[2017-04-29] MEDS ORDERED: Tranexamic Acid 1,000 MG/100 ML BAG ONE (08:02)
[2017-04-29] MEDS ORDERED: Fentanyl 100 MCG/2 ML VIAL ONE (08:06)
[2017-04-29] MEDS ORDERED: Promethazine HCl 25 MG/ML VIAL SLOW IVP PRN (09:01)
[2017-04-29] MEDS ORDERED: Promethazine HCl 25 MG/ML VIAL IM PRN (09:01)
[2017-04-29] MEDS ORDERED: Ondansetron HCl/PF 4 MG/2 ML Vial IVP PRN (09:01)
[2017-04-29] MEDS ORDERED: Cepastat Lozenges 1 LOZ PO PRN (11:33)
[2017-04-29] MEDS ORDERED: Bisacodyl 10 MG SUPP PR PRN (11:33)
[2017-04-29] MEDS ORDERED: Fleet Enema 133 ML BOT PR PRN (11:33)
--- NOTE | 2017-04-29 13:20 | PRG ---
DATE OF SERVICE: 04/29/2017 ATTENDING PHYSICIAN: Dr. Tubbs. This is Elly York, Nurse Practitioner, dictating daily progress note for Dr. Tubbs SUBJECTIVE: An 89-year-old female admitted one day ago, status post ground level fall with left intertrochanteric hip fracture. She has been to the OR this morning for fixation of hip fracture. She is now seen postoperatively on the surgical floor. She is awake and alert and pain is well controlled. OBJECTIVE: GENERAL: Elderly female lying in bed, in no acute distress, nontoxic appearing. HEENT: Normocephalic, atraumatic. PULMONARY: Respirations even unlabored. No respiratory distress. CARDIOVASCULAR: Regular rate and rhythm. ABDOMEN: Soft, nontender, nondistended. EXTREMITIES: Moves all extremities. Neurovascularly intact. Cap refill brisk. Dressing to left lateral thigh clean, dry, and intact. NEUROLOGIC: GCS of 15. Awake, alert, oriented x3. ASSESSMENT: 1. An 89-year-old female status post ground level fall. 2. Status post open reduction and internal fixation of left hip fracture. PLAN: 1. Regular diet today. 2. PT, OT consult for mobilization. 3. Lovenox for DVT prophylaxis. 4. Hospital Medicine following. This patient has been reviewed and discussed with Dr. Tubbs, attending surgeon. He agrees with the assessment and plan. IZZY
--- NOTE | 2017-04-29 13:28 | PDOC.PN ---
- Subjective Encounter Start Date: 04/29/17 Encounter Start Time: 13:27 Ms. Summers was seen today in follow-up of Left Hip fracture, and history of hypertension. She is feeling ok, but has some pain regarding the recent surgery today. She denies chest pain or dyspnea. - Objective Resuscitation Status: Resuscitation Status DNR:Do Not Resuscitate MAR Reviewed: Yes Vital Signs & Weight: Vital Signs (12 hours) Temp Pulse Resp BP Pulse Ox 04/29/17 11:53 99.0 F 72 18 04/29/17 07:20 99.0 F 72 18 92 L 04/29/17 05:15 99.0 F 72 18 157/66 H 95 Weight Weight 158 lb 3.2 oz I&O: 04/28/17 04/29/17 04/30/17 06:59 06:59 06:59 Intake Total 1670 Output Total 820 Balance 850 Result Diagrams: 04/29/17 05:49 04/29/17 05:49 Phys Exam - Physical Examination HEENT: PERRLA Respiratory: no wheezing, no rales, no rhonchi, clear to auscultation bilateral Cardiovascular: RRR, no significant murmur Gastrointestinal: soft Musculoskeletal: no edema + skin discoloration Dx/Plan (1) Fracture, intertrochanteric, left femur Code(s): S72.142A - DISPLACED INTERTROCHANTERIC FRACTURE OF LEFT FEMUR, INIT Status: Acute (2) Orthostatic hypotension Code(s): I95.1 - ORTHOSTATIC HYPOTENSION Status: Acute (3) HTN (hypertension) Code(s): I10 - ESSENTIAL (PRIMARY) HYPERTENSION Status: Chronic (4) Hypothyroid Code(s): E03.9 - HYPOTHYROIDISM, UNSPECIFIED Status: Chronic - Plan * Left Intertrochanteric Fracture- s/p repair today- She is clinically stable * HTN- blood pressure is stable overall- consider re-starting Losartan tomorrow * Heart Rhythm was determined to be sinus, and her heart rate is stable * Hypothyroidism- she is clinically euthyroid * Continue PT/OT.
[2017-04-29] MEDS: Bupropion 150 MG SR TAB PO SCH (13:37)
[2017-04-29] MEDS: Escitalopram Oxalate 20 mg Tablet PO SCH (13:37)
[2017-04-29] MEDS: Famotidine/PF 20 mg/2ml Vial SLOW IVP SCH ×2 (13:38→20:25)
--- NOTE | 2017-04-29 13:52 | RAD ---
LEFT HIP: Five fluoroscopic images are presented from the OR. HISTORY: Intraoperative imaging during open reduction internal fixation of left hip. FINDINGS: These films demonstrate an intramedullary janay in the left femur and a compression screw transfixing t he femoral neck. POS: ROSHAN
[2017-04-29] MEDS ORDERED: Acetaminophen 1,000 MG in Premix Bag 1 BAG IVPB PRN (14:02)
[2017-04-29] MEDS ORDERED: Glycopyrrolate 0.2 MG/ML 5 ML SYRINGE ONE (14:08)
[2017-04-29] MEDS ORDERED: Ondansetron HCl/PF 4 MG/2 ML Vial ONE (14:08)
[2017-04-29] MEDS ORDERED: Propofol 200 MG/20 ML VIAL ONE (14:08)
[2017-04-29] MEDS ORDERED: Acetaminophen 500 MG TAB PO PRN (14:11)
[2017-04-29] MEDS: Acetaminophen 500 MG TAB PO PRN (14:52)
[2017-04-29] MEDS: traMADol HCl 50 MG TAB PO PRN (14:54)
[2017-04-29] MEDS: CEFAZOLIN/Water 2 GM/20 ML SYRINGE SLOW IVP SCH (14:55)
--- NOTE | 2017-04-29 15:17 | OP ---
DATE OF PROCEDURE: 04/29/2017 PREOPERATIVE DIAGNOSIS: Left intertrochanteric hip fracture. POSTOPERATIVE DIAGNOSIS: Left intertrochanteric hip fracture. PROCEDURE PERFORMED: Intramedullary left intertrochanteric hip fracture, long nail TFNA nail. STAFF: Corey Sanchez M.D. PROFESSIONAL BONDSMAN: Rgio Aguilar PA-C. ANESTHESIOLOGIST: Dr. Figueroa. ANESTHESIA: The patient received general endotracheal intubation. ESTIMATED BLOOD LOSS: 100 mL TOURNIQUET TIME: None. IMPLANTS: Synthes 11 x 380 mm TFNA nail with a 100 mm compression screw and a 40 x 5.0 mm screw. ANTIBIOTICS: Two grams, TXA 1 gram. COMPLICATIONS: None. HISTORY OF PRESENT ILLNESS: Ms. Summers is an 89-year-old female who lives in assisted living. The p atient had a fall from stand sustaining a left intertrochanteric hip fracture. I discussed with the family risks and benefits of a left nail to include pain, scar, bleeding, infection, damage to vital structures, decreased range of motion or strength, failure of procedure, nonunion, malunion, continue d pain despite surgical intervention. The patient and family understood the risks and benefits of pr ocedure and elected to proceed. Timeout was performed. The patient's left lower extremity as the op erative site based on sight, consents, markings. DESCRIPTION OF PROCEDURE: After timeout performed, the patient received general endotracheal intubat ion. The patient was placed on the fracture table. She was pulled out in traction out to length, st arted with. We prepped and draped in sterile fashion. We made an incision off the greater trochante r and down through skin through IT band. We palpated the greater trochanter. We used our guide pin placed it under both palpation as well as fluoroscopic guidance in AP and lateral planes. We drove t he pin down the shaft of the femur and we felt we had an good position on AP and lateral radiographs. We used our opening reamer, reamed, we then removed, placed our ball-tip guidewire. We reamed up t o a 12 and passed 11 x 300 mm nail based on our measurements. We then looked on AP and lateral radio graphs for center-center position with our head. We positioned the ball pin a little bit posterior w ithin the neck and little posterior within the head. We overdrilled, we measured 105, drilled and pl aced 100 mm; we let the traction off compressed through the fracture. We placed the locking gate ina n and loosened it by 1 full turn. We then turned our attention to the distal locking screw, did perf ect circles, placed a screw into the chili pepper distally, positioned the tamale hole distally with a dynamized position, drilled bicortically, placed 40 x 5.0 screw. We washed, closed with 0, 2-0, an d jania. Soft tissue dressing applied. The patient will be admitted back to the trauma and the patient receiv ed antibiotics postoperatively. DVT prophylaxis for trauma. The patient will begin weightbearing as tolerated.
[2017-04-29] MEDS: Pregabalin 75 MG CAP PO SCH (20:26)
[2017-04-29] MEDS: Ferrous Gluconate 324 MG TAB PO SCH (20:27)
[2017-04-29] MEDS: Donepezil HCl 10 MG TAB PO SCH (20:27)
[2017-04-29] MEDS: Senokot S 8.6-50 MG TAB PO SCH (20:27)
[2017-04-30] MEDS: CEFAZOLIN/Water 2 GM/20 ML SYRINGE SLOW IVP SCH (00:01)
[2017-04-30] MEDS: D5 1/2 NS w/20 mEq KCL 1,000 ML IV SCH ×3 (03:50→17:21)
[2017-04-30 04:44] LABS: Hematocrit 29.3 % (36.0-47.0); Mean Platelet Volume 8.4 fL (7.4-10.4); Red Blood Cell (RBC) Count 3.03 mill/uL (4.20-5.40); White Blood Cell (WBC) Count 10.2 thou/uL (4.8-10.8)
[2017-04-30] MEDS: Levothyroxine Sodium 75 MCG TAB PO SCH (06:32)
[2017-04-30] MEDS: Carvedilol 3.125 MG TAB PO SCH ×2 (08:42→16:41)
[2017-04-30] MEDS: Famotidine/PF 20 mg/2ml Vial SLOW IVP SCH (08:43)
[2017-04-30] MEDS: Enoxaparin Sodium 30 MG/0.3 ML SYRINGE SC SCH (08:43)
[2017-04-30] MEDS: Escitalopram Oxalate 20 mg Tablet PO SCH (08:43)
[2017-04-30] MEDS: Multivitamin W/ Minerals 1 TAB PO SCH (08:44)
[2017-04-30] MEDS: Senokot S 8.6-50 MG TAB PO SCH ×2 (08:44→20:53)
[2017-04-30] MEDS: Ferrous Gluconate 324 MG TAB PO SCH ×2 (08:44→20:54)
[2017-04-30] MEDS: traMADol HCl 50 MG TAB PO PRN ×2 (08:54→14:58)
[2017-04-30] MEDS: Acetaminophen 500 MG TAB PO PRN ×2 (08:54→14:58)
[2017-04-30] MEDS: Bupropion 150 MG SR TAB PO SCH (09:28)
--- NOTE | 2017-04-30 13:52 | PRG ---
DATE OF SERVICE: 04/30/2017 ATTENDING PHYSICIAN: Dr. Tubbs. SUBJECTIVE: An 89-year-old female admitted 2 days ago, status post ground level fall. She is postoperative day #1, status post open reduction and internal fixation of left hip fracture. She has remained stable on the floor. She is awake and alert. Pain is well controlled. OBJECTIVE: VITAL SIGNS: Temperature 99.3, pulse 73, respirations 12, O2 sat 91%, blood pressure 174/67. HEENT: Normocephalic, atraumatic. PULMONARY: Respirations are even and unlabored. No respiratory distress. CARDIOVASCULAR: Regular rate and rhythm. ABDOMEN: Soft, nontender, nondistended. EXTREMITIES: Moves all extremities well. Neurovascularly intact. Cap refill brisk. Dressing to left lateral thigh clean, dry, and intact. NEUROLOGIC: GCS 15. Awake, alert, oriented x3. ASSESSMENT: 1. An 89-year-old female status post ground level fall. 2. Status post open reduction and internal fixation of left hip fracture. PLAN: 1. PT, OT for mobilization. 2. Lovenox for DVT prophylaxis. 3. Consider restarting losartan tomorrow per hospital medicine recommendations. 4. Case management consult for discharge planning. The patient was reviewed with Dr. Tubbs who agrees with assessment and plan. [facility]
--- NOTE | 2017-04-30 15:30 | PDOC.PN ---
- Subjective Encounter Start Date: 04/30/17 Encounter Start Time: 15:29 Ms. Summers was seen today in follow-up of hip fracture and HTN. She does not have any complaints this afternoon. She says the pain is controlled in her hip. - Objective Resuscitation Status: Resuscitation Status DNR:Do Not Resuscitate MAR Reviewed: Yes Vital Signs & Weight: Vital Signs (12 hours) Temp Pulse Resp BP Pulse Ox 04/30/17 12:00 98.6 F 66 12 114/65 94 L 04/30/17 08:00 99.3 F 73 12 174/67 H 91 L 04/30/17 07:30 99.3 F 73 12 04/30/17 05:18 98.7 F 74 18 153/62 H 92 L Weight Admit Weight 158 lb Weight 158 lb 3.2 oz I&O: 04/29/17 04/30/17 05/01/17 06:59 06:59 06:59 Intake Total 1670 1500 Output Total 820 2500 Balance 850 -1000 Result Diagrams: 04/30/17 04:00 04/29/17 05:49 Phys Exam - Physical Examination HEENT: PERRLA Respiratory: no wheezing, no rales, no rhonchi Cardiovascular: RRR, no significant murmur, no rub Gastrointestinal: soft, non-tender, positive bowel sounds Musculoskeletal: no edema Dx/Plan (1) Fracture, intertrochanteric, left femur Code(s): S72.142A - DISPLACED INTERTROCHANTERIC FRACTURE OF LEFT FEMUR, INIT Status: Acute (2) Orthostatic hypotension Code(s): I95.1 - ORTHOSTATIC HYPOTENSION Status: Acute (3) HTN (hypertension) Code(s): I10 - ESSENTIAL (PRIMARY) HYPERTENSION Status: Chronic (4) Hypothyroid Code(s): E03.9 - HYPOTHYROIDISM, UNSPECIFIED Status: Chronic - Plan * HTN- blood pressure overall is stable- will re-start Losartan this evening * Hypothyroidism - continue Levothyroixine * Continue PT/OT.
[2017-04-30] MEDS: Donepezil HCl 10 MG TAB PO SCH (20:53)
[2017-04-30] MEDS: Pregabalin 75 MG CAP PO SCH (20:54)
[2017-04-30] MEDS: Famotidine 20 MG TAB PO SCH (20:54)
[2017-05-01 05:10] LABS: Hematocrit 31.1 % (36.0-47.0); Mean Platelet Volume 8.3 fL (7.4-10.4); Red Blood Cell (RBC) Count 3.22 mill/uL (4.20-5.40); White Blood Cell (WBC) Count 10.7 thou/uL (4.8-10.8)
[2017-05-01] MEDS: Levothyroxine Sodium 75 MCG TAB PO SCH (06:47)
[2017-05-01] MEDS: traMADol HCl 50 MG TAB PO PRN (08:41)
[2017-05-01] MEDS: Multivitamin W/ Minerals 1 TAB PO SCH (08:41)
[2017-05-01] MEDS: Senokot S 8.6-50 MG TAB PO SCH ×2 (08:41→21:48)
[2017-05-01] MEDS: Bupropion 150 MG SR TAB PO SCH (08:42)
[2017-05-01] MEDS: Ferrous Gluconate 324 MG TAB PO SCH ×2 (08:42→21:47)
[2017-05-01] MEDS: Acetaminophen 500 MG TAB PO PRN (08:42)
[2017-05-01] MEDS: Escitalopram Oxalate 20 mg Tablet PO SCH (08:42)
[2017-05-01] MEDS: Carvedilol 3.125 MG TAB PO SCH ×2 (08:42→19:58)
[2017-05-01] MEDS: Famotidine 20 MG TAB PO SCH ×2 (08:42→21:48)
[2017-05-01] MEDS: Enoxaparin Sodium 30 MG/0.3 ML SYRINGE SC SCH (08:43)
--- NOTE | 2017-05-01 16:46 | PRG ---
DATE OF SERVICE: 05/01/2017 ATTENDING PHYSICIAN: Cory Coles M.D. SUBJECTIVE: An 89-year-old female admitted 3 days ago, status post ground level fall. She is postop day #2, status post ORIF of left hip fracture. She had an episode of hypotension when ambulating [facility] physical therapy this morning. She has had no other complications. She is awake and alert. OBJECTIVE: CURRENT VITAL SIGNS: Temperature 98.2, pulse 75, respirations 14, O2 sat 94%, blood pressure 136/65. HEENT: Normocephalic, atraumatic. PULMONARY: Respirations even and unlabored. No respiratory distress. CARDIOVASCULAR: Regular rate and rhythm. Heart sounds normal. ABDOMEN: Soft, nontender, nondistended. EXTREMITIES: Moves all extremities well. Neurovascularly intact. Cap refill brisk. NEUROLOGIC: GCS 15. Awake, alert, oriented x3. ASSESSMENT: 1. An 89-year-old female status post ground level fall. 2. Status post open reduction internal fixation left hip fracture. 3. Transient orthostatic hypotension. PLAN: 1. 250 mL bolus of normal saline today. 2. Continue PT, OT for mobilization. 3. Lovenox for DVT prophylaxis. 4. Losartan restarted by Hospital Medicine. 5. The patient is accepted to [facility] and anticipate will discharge to [facility] in the a.m. The patient was reviewed with Dr. Coles who agrees with the assessment and plan.
--- NOTE | 2017-05-01 17:25 | PDOC.PN ---
- Subjective Encounter Start Date: 05/01/17 Encounter Start Time: 17:23 Ms. Summers was seen today in follow-up. She does not have any complaints. She got up twice with physical therapy, and says the pain was tolerable. - Objective Resuscitation Status: Resuscitation Status DNR:Do Not Resuscitate MAR Reviewed: Yes Vital Signs & Weight: Vital Signs (12 hours) Temp Pulse Pulse Pulse Pulse Pulse Resp 05/01/17 15:30 98.2 F 75 14 05/01/17 13:31 65 64 68 05/01/17 11:00 98.9 F 73 16 05/01/17 10:13 86 66 66 72 05/01/17 08:46 66 05/01/17 08:00 98.2 F 75 14 05/01/17 07:15 98.0 F 67 12 BP BP BP BP BP Pulse Ox Pulse Ox 05/01/17 15:30 136/65 94 L 05/01/17 13:31 105/56 L 103/52 L 127/57 L 05/01/17 11:00 108/64 92 L 05/01/17 10:13 151/66 H 112/64 67/44 L 110/67 05/01/17 08:46 157/67 H 112/52 L 152/68 H 93 L 05/01/17 08:00 05/01/17 07:15 155/67 H 93 L Weight Admit Weight 158 lb Weight 158 lb 3.2 oz I&O: 04/30/17 05/01/17 05/02/17 06:59 06:59 06:59 Intake Total 1500 3620 Output Total 2500 4200 Balance -1000 -580 Result Diagrams: 05/01/17 04:29 04/29/17 05:49 Phys Exam - Physical Examination HEENT: PERRLA Respiratory: no wheezing, no rales, no rhonchi, clear to auscultation bilateral Cardiovascular: RRR, no significant murmur Gastrointestinal: soft, non-tender, positive bowel sounds Musculoskeletal: no edema Dx/Plan (1) Fracture, intertrochanteric, left femur Code(s): S72.142A - DISPLACED INTERTROCHANTERIC FRACTURE OF LEFT FEMUR, INIT Status: Acute (2) Orthostatic hypotension Code(s): I95.1 - ORTHOSTATIC HYPOTENSION Status: Acute (3) HTN (hypertension) Code(s): I10 - ESSENTIAL (PRIMARY) HYPERTENSION Status: Chronic (4) Hypothyroid Code(s): E03.9 - HYPOTHYROIDISM, UNSPECIFIED Status: Chronic - Plan * Hypertension- patient had a low reading earlier today, but since then her blood pressure has stabilized- will continue to monitor * Hypothyroidism- stable * Continue PT/OT * Awaiting intermediate placement.
[2017-05-01] MEDS: Losartan Potassium 25 MG TAB PO SCH ×2 (19:58→21:55)
[2017-05-01] MEDS: D5 1/2 NS w/20 mEq KCL 1,000 ML IV SCH ×2 (19:58→21:50)
[2017-05-01] MEDS: Donepezil HCl 10 MG TAB PO SCH (21:47)
[2017-05-01] MEDS: Pregabalin 75 MG CAP PO SCH (21:54)
[2017-05-02] MEDS ORDERED: Sodium Chloride 0.9% 1,000 ML IV SCH (01:45)
[2017-05-02] MEDS: HYDROcodone/Acetaminophen 5/325 mg Tablet PO PRN ×2 (05:23→10:44)
[2017-05-02] MEDS: Levothyroxine Sodium 75 MCG TAB PO SCH (05:23)
[2017-05-02 05:27] LABS: Hematocrit 31.1 % (36.0-47.0); Mean Platelet Volume 8.8 fL (7.4-10.4); Red Blood Cell (RBC) Count 3.24 mill/uL (4.20-5.40); White Blood Cell (WBC) Count 11.5 thou/uL (4.8-10.8)
[2017-05-02] MEDS: Escitalopram Oxalate 20 mg Tablet PO SCH (10:38)
[2017-05-02] MEDS: Multivitamin W/ Minerals 1 TAB PO SCH (10:38)
[2017-05-02] MEDS: Enoxaparin Sodium 30 MG/0.3 ML SYRINGE SC SCH (10:38)
[2017-05-02] MEDS: Ferrous Gluconate 324 MG TAB PO SCH (10:38)
[2017-05-02] MEDS: Famotidine 20 MG TAB PO SCH (10:38)
[2017-05-02] MEDS: Carvedilol 3.125 MG TAB PO SCH (10:38)
[2017-05-02] MEDS: Bupropion 150 MG SR TAB PO SCH (10:40)
[2017-05-02] MEDS: Senokot S 8.6-50 MG TAB PO SCH (10:41)
[2017-05-02 11:46] VITALS: BP 126/68; TEMP 98.2
--- NOTE | 2017-05-03 01:36 | DIS ---
PRIMARY CARE PHYSICIAN: Dr. Bert Narayanan. DATE OF ADMISSION: 04/28/2017 DATE OF DISCHARGE: 05/02/2017 DISCHARGE DISPOSITION: To care home center at [facility]. DISCHARGE DIAGNOSES: 1. Left intertrochanteric femur fracture. 2. Hypertension. 3. Hypothyroidism. 4. Osteoarthritis. 5. Fibromyalgia. DISCHARGE MEDICATIONS: Include trazodone 50 mg at bedtime, tramadol 50 mg q.6, Lyrica 75 mg at bedti me, Cozaar 25 mg daily, levothyroxine 75 mcg daily, Duexis 800/26.6 one tablet daily, escitalopram 20 mg daily, donepezil 10 mg at bedtime, BuSpar XL 150 mg daily, Tylenol 500 mg q.6 p.r.n. CODE STATUS: FULL CODE. ALLERGIES: No known drug allergies. HOSPITAL COURSE: Ms. Summers is a pleasant 89-year-old female, who was walking in her assisted living facility when her legs got tangled up in the walker and she fell fracturing her left hip. She was b rought to the emergency room and evaluated by Orthopedic Surgery as well as the trauma team and was a dmitted. There were some concerns on her EKG that she could have atrial fibrillation. Cardiology wa s consulted and it was felt that the electronic read on the EKG was incorrect and she was not in atri al fibrillation, but was in fact in sinus rhythm. She was cleared for surgery and underwent the proc edure, and she had an uneventful postoperative course. The hospitalist service was consulted for med ical management and the patient was subsequently discharged to [facility].
--- NOTE | 2017-05-04 17:47 | PQF ---
ALIS STEPHENS TONI MD [id number] CLINICAL DOCUMENTATION CLARIFICATION FORM: POST DISCHARGE Addendum to original discharge summary date: ____ Late entry note date: __ DATE: 04/28/17 ATTN: Amadou Harley MD Please exercise your independent, professional judgment in responding to the clarification form. Clinical indicators are provided on the bottom of this form for your review Consult Report by Corey Sanchez MD on 04/28/17 pg. 1 Laboratory Data: creatinine 1.17 pg.2 Impression: # 4. Acute Renal Failure [ ] Diagnosis of: Acute Renal Failure [ ] Present on admission: [ ] Yes [ ] No [ ] Unable to determine [ ] Other diagnosis: Coding guidelines require hospitals to identify whether a diagnosis was present on admission (POA) or not. To accurately assign the appropriate POA indicator, this information must be clearly documented within the medical record. CLINICAL INDICATORS - SIGNS / SYMPTOMS / LABS Documentation of: Documentation of: Documentation of: RISK FACTORS: TREATMENT: (This form is maintained as a part of the permanent medical record) 2014 [employer]. All Rights Reserved [email or web address] [phone] IZZY
== END 2017-05-02 11:55 | DRG 481 ==
LOC: ERS 06:33 → 2NO 08:30 → SJJU 04-29 11:04
PROVIDERS: ADMIT Specialist; ATTEND Orthopaedic Surgery
PROC: 0QS706Z Reposition Left Upper Femur with Intramedullary Internal Fixation Device, Open Approach (ICD-10-PCS; principal; 2017-04-29)
DX: S72.142A Displaced intertrochanteric fracture of left femur, initial encounter for closed fracture (principal); N17.9 Acute kidney failure, unspecified; I48.91 Unspecified atrial fibrillation; I10 Essential (primary) hypertension; E03.9 Hypothyroidism, unspecified; M19.90 Unspecified osteoarthritis, unspecified site; I95.1 Orthostatic hypotension; M79.7 Fibromyalgia; Z66 Do not resuscitate; Z82.49 Family history of ischemic heart disease and other diseases of the circulatory system; W18.30XA Fall on same level, unspecified, initial encounter; Y92.009 Unspecified place in unspecified non-institutional (private) residence as the place of occurrence of the external cause
CPT/HCPCS: 36415; 51702; 71010; 72170; 76001; 80048; 80053; 81001; 83690; 85025; 85027; 85610; 85730; 86850; 86900; 86901; 93005; 96374; A4216; C1713; C1769; G8978-GP-CL; G8979-GP-CJ; G8987-GO-CL; G8988-GO-CJ; J0131; J0360; J1650; J2270; J2405; J2704; J3010; S0028

== ENCOUNTER 2017-05-18 08:54 | Inpatient (IN) | payer MEDICARE ==
[2017-05-18] MEDS ORDERED: Heparin 1,000 UNITS/ML VIAL ONE (09:00)
[2017-05-18 10:02] LABS: Mean Corpuscular HGB CONC 32.4 g/dL (32.0-36.0); Mean Corpuscular Hemoglobin 31.9 pg (27.0-31.0); Mean Corpuscular Volume 98.4 fl (81.0-99.0); Mean Platelet Volume 7.7 fL (7.4-10.4); Platelet Count 282 thou/uL (130-400); RBC Distribution Width 13.3 % (11.5-14.5); Red Blood Cell (RBC) Count 2.83 mill/uL (4.20-5.40)
[2017-05-18 10:04] LABS: INR-International Normal Ratio 1.2; PTT 34.5 SEC (22.9-36.1); Prothrombin Time 15.1 SEC (12.0-14.7)
--- NOTE | 2017-05-18 10:12 | RAD ---
PORTABLE UPRIGHT FRONTAL CHEST RADIOGRAPH: Date: 05-18-17 Comparison: 05-03-17 History: Fever and mental status changes. FINDINGS: No pneumothorax or pleural fluid. No focal consolidation or alveolar edema. There is mild perihilar and bibasilar interstitial prominence. IMPRESSION: Mild perihilar and bibasilar interstitial prominence may signify volume loss, mild edema, or mild int erstitial inflammatory change. Follow PA and lateral chest imaging is advised following treatment as clinically indicated. POS: [facility]
[2017-05-18 10:13] LABS: ALT (SGPT) 25 U/L (8-55); AST (SGOT) 42 U/L (5-34); Alkaline Phosphatase 158 U/L (40-150); Anion Gap 15 mmol/L (10-20); BUN (Urea Nitrogen) 28 mg/dL (9.8-20.1); CK (CPK) 17 U/L (29-168); Calc. Creatinine Clearance 0 mL/min (70-130); Calcium 8.6 mg/dL (7.8-10.44); Carbon Dioxide 18 mmol/L (23-31); Chloride 100 mmol/L (98-107); Estimated GFR-MDRD 61; Globulin 3.1 g/dL (2.4-3.5); Glucose 117 mg/dL (83-110); Lipase 5 U/L (8-78); Potassium 4.2 mmol/L (3.5-5.1); Protein, Total 6.1 g/dL (6.0-8.3); Sodium 129 mmol/L (136-145)
--- NOTE | 2017-05-18 10:16 | RAD ---
FRONTAL RADIOGRAPH PELVIS: DATE: 05/18/17. COMPARISON: 04/28/17. HISTORY: Fever, mental status changes, recent hip surgery. FINDINGS: There is a proximal left femoral shaft/neck fracture treated with an incompletely imaged intramedulla ry janay with an associated femoral neck screw. Cutaneous jania are seen laterally on the left. The pelvic ring appears intact. Neither hip is dislocated. No acute fracture. IMPRESSION: Evidence of recent open reduction and internal fixation of proximal left femur fracture. No new frac ture. POS: [facility]
[2017-05-18 10:17] LABS: CKMB 0.4 ng/mL (0-6.6)
[2017-05-18 10:21] LABS: Anisocytosis SLIGHT = 6-15 cells (100X) (0-5/hpf); Band 5 % (5-11); Lymphocytes 2 % (21-51); MDiff Complete? YES; Monocytes 4 % (0-10); Neutrophil 89 % (42-75)
[2017-05-18 10:27] LABS: Bilirubin Negative (Negative); Blood, Urine Small (Negative); Clarity CLOUDY (Clear); Glucose, Urine (Dipstick) Negative (Negative); Leukocyte Negative (Negative); Nitrite Negative (Negative); Protein, Urine (Dipstick) 100 mg/dL (Neg-Trace); Specific Gravity, Urine 1.021 (1.002-1.036); pH, Urine 6.5 (5.0-9.0)
[2017-05-18] MEDS ORDERED: Piperacillin/Tazobactam 4.5 GM in Sodium Chloride 0.9% 100 ML IVPB SCH (10:30)
[2017-05-18 10:31] LABS: Bacteria/HPF None Seen HPF (None Seen); Hyaline Casts/LPF 0-3 HYALINE CAST LPF (0-3 Hyaline); Pathc Cast-AUWi Flag 0.54 (0-2.49); Squamous Epithelial 0-3 HPF (0-3); WBC/HPF 0-3 HPF (0-3)
[2017-05-18] MEDS ORDERED: Benzonatate 100 MG CAP PO PRN (13:20)
[2017-05-18] MEDS ORDERED: Mag-Al 1200 mg/1200 mg/30 ML UDCUP PO PRN (13:20)
[2017-05-18] MEDS ORDERED: Diabetic Tussin 200 MG/10 ML UDCUP PO PRN (13:20)
[2017-05-18] MEDS ORDERED: Sodium Chloride 0.65% Nasal 44 ML BOT EA NARE PRN (13:20)
[2017-05-18] MEDS ORDERED: Artificial Tears 18 DROP/0.9 ML EA EYE PRN (13:20)
[2017-05-18] MEDS ORDERED: Chloraseptic Spray 180 ml Bottle PO PRN (13:20)
[2017-05-18] MEDS ORDERED: Milk Of Magnesia 30 ML UDCUP PO PRN (13:20)
[2017-05-18] MEDS ORDERED: Ondansetron HCl/PF 4 MG/2 ML Vial IVP PRN (13:20)
[2017-05-18] MEDS ORDERED: Senokot 8.6 MG TAB PO PRN (13:20)
[2017-05-18] MEDS ORDERED: Eucerin (Mineral Oil/Petrolatum,White) 30 gm Jar TOP PRN (13:20)
[2017-05-18] MEDS ORDERED: Loperamide HCl 2 MG CAP PO PRN (13:20)
[2017-05-18] MEDS ORDERED: Zolpidem Tartrate 5 MG TAB PO PRN (13:20)
[2017-05-18] MEDS ORDERED: Ondansetron ODT 4 MG TAB PO PRN (13:20)
[2017-05-18] MEDS ORDERED: Loratadine 10 MG TAB PO PRN (13:20)
--- NOTE | 2017-05-18 14:17 | HP ---
PRIMARY CARE PHYSICIAN: Corey Narayanan M.D. REASON FOR ADMISSION: Sepsis, bibasilar pneumonia. HISTORY OF PRESENT ILLNESS: An 89-year-old female who has underlying Alzheimer' s dementia, who lives at [facility] where patient was having fever, tachypnea and that is why they sent her to the emergency room for evaluation. When she presented to emergency room, she was hypertensive with blood pressure 205/89. She was tachypneic and febrile with temperature of 100.5. Subsequently , her routine blood tests showed leukocytosis with left shift and bandemia. Her chest x-ray showed bibasilar infiltration. As per report, patient was having increasing confusion and pain. Patient had IV site which was draining seropurulent material and it was positive for gram positive cocci. The patient was not given antibiotic therapy. She was hypoxic and she was requiring oxygen to maintain saturation. Maximum temperature recorded at longterm was 101.1 and she was having orthostatic hypotension. When she arrived to ER, sepsis activation was initiated. This patient is confused and she is not able to provide any good history, but she was recently admitted in our hospital for left hip surgery and an intramedullary janay was placed and subsequently she was transferred to longterm. She was in our hospital on 04/28/2017 and she was discharged to [facility] on 2016. During that admission, patient was repaired for left intertrochanteric femur fracture. The patient was getting Lovenox subcu daily for DVT prophylaxis at longterm. REVIEW OF SYSTEMS: The patient is alert, follows simple combined but when I was trying to get review of systems she appeared to be confused, so review of system review was not able to obtain from her and it was not reliable because of altered mental status. PAST MEDICAL HISTORY: Fibromyalgia, hypothyroidism, osteoarthritis, hypertension, and senile dementia. PAST PSYCHIATRIC HISTORY: Anxiety and depression. PAST SURGICAL HISTORY: Left hip surgery on 04/29/2017, bladder suspension, colonoscopy, cataract surgery, appendicectomy, hysterectomy, and tonsillectomy. SOCIAL HISTORY: Patient currently lives at [facility]. No history of tobacco, alcohol or illicit drug abuse. FAMILY HISTORY: Positive for coronary artery disease. CURRENT HOME MEDICATIONS: Tylenol 1 gram q.6 hourly p.r.n., bupropion XL 150 mg p.o. daily, Aricept 10 mg p.o. at bedtime, Lexapro 20 mg p.o. daily, Synthroid 75 mcg p.o. daily, losartan 25 mg p.o. daily, Lyrica 75 mg p.o. at bedtime, tramadol 50 mg q.6 hourly p.r.n., trazodone 50 mg p.o. at bedtime. EMERGENCY ROOM COURSE: Patient is given vancomycin, Zosyn, Levaquin, aspirin 324 mg, IV fluid. ALLERGY: No known drug allergy. PHYSICAL EXAMINATION: VITAL SIGNS: On arrival, blood pressure 205/89, pulse 97, respiratory rate 24, temperature 100.5, saturation 95% on 2 liter oxygen, weight 69.4 kilograms. GENERAL: Patient is confused, afebrile, hypertensive, and weak. HEAD: Normocephalic, atraumatic. EYES: Pupils round, reactive to light. Extraocular muscle intact. ENT: Oropharynx within normal limits. Moist mucous membranes. No thrush. No pharyngeal erythema, no exudate. NECK: Supple. No meningeal signs of irritation. LUNGS: Bibasilar rales noted. Few end expiratory wheezing heard. CARDIAC: S1, S2 regular. No murmur, no gallop, no rub. ABDOMEN: Obesity present. Bowel sounds present. Nontender, nondistended. No organomegaly, no mass, no suprapubic tenderness. No peritoneal sign. BACK: Examination unremarkable, no CVA tenderness. EXTREMITIES: Upper extremity passive movements of all joints are normal. Right lower extremity has a wound which is covered with dressing. Lower extremity incision on left hip is clean and healthy. No cellulitis. NEUROLOGIC: The patient is moving all 4 limbs. Detailed neurological examination is not possible. SKIN: No skin rash. IMAGING DATA AND SIGNIFICANT LABORATORY DATA: 1. EKG based on my review, atrial fibrillation with controlled ventricular response. 2. Chest x-ray based on my review bibasilar infiltration. 3. X-ray of pelvis negative for any fracture. 4. CBC: WBC 26.0, hemoglobin 9.0, platelet 282 with bandemia and left shift. INR 1.2. 5. BMP: Sodium 129, potassium 4.2, chloride 100, carbon dioxide 18, anion gap 15, BUN 28, creatinine 0.88, glucose 117, calcium 8.6, and lactic acid 1.7. 6. LFT: AST 42, ALT 25, alkaline phosphatase 158, albumin 3.0. CK 17, CK-MB 0.4, troponin I 0.040. BNP 306.2. TSH 0.72. 7. Urinalysis: RBC 11-20 with leukocyte esterase negative, nitrite negative. Influenza A and B negative. ASSESSMENT AND PLAN/IMPRESSION: 1. Sepsis with acute organ dysfunction. This patient has leukocytosis with bandemia, high grade fever and altered mental status with encephalopathy and abnormal cardiac enzyme and LFTs, all consistent with sepsis with acute organ dysfunctions. Source of infection is most likely pneumonia, but other infection , likely urinary tract infection needs to be excluded. 2. Acute encephalopathy likely due to underlying sepsis. We will monitor while in hospital. Patient does not have any focal neurological deficit. Her altered mental status is related with sepsis as well as abnormal metabolic parameters including hyponatremia. 3. Demand ischemia of myocardium. The patient has elevated troponin, most likely related with sepsis. We will do serial cardiac enzymes to rule out acute coronary syndrome and we will obtain echocardiography. We will continue with aspirin 81 mg p.o. daily. 4. Elevated BNP. Most likely patient has underlying diastolic heart failure. This patient's echocardiography on 02/2017 showed EF normal, moderate pulmonary regurgitation and severe tricuspid regurgitation and moderate mitral regurgitation. 5. Abnormal liver function tests, likely related with sepsis. We will repeat LFTs tomorrow. This patient does not have any tenderness in the right upper quadrant and does not suspect any gallbladder pathology, but that possibility cannot be entirely excluded. 6. Hyponatremia likely due to volume depletion. The patient has been given IV fluid in the emergency room. Will avoid too much fluid because of patient's severe valvular heart disease and risk of volume overload. We will repeat BMP tomorrow and her TSH is also normal. 7. Bibasilar healthcare associated pneumonia. The patient will be given vancomycin, Zosyn, and levofloxacin. DuoNeb therapy will be given. Florastor probiotics will be given. We will also continue Mucinex 600 mg twice daily and DuoNeb therapy every 6 hourly. 8. Hypertension with hypertensive urgency on admission. We will monitor blood pressure closely. We will resume losartan 25 mg p.o. daily. 9. Hypothyroidism. We will resume Synthroid 75 mcg p.o. daily. 10. Anxiety and depression. We will resume bupropion XL 150 mg p.o. daily and Lexapro 20 mg p.o. daily. 11. Senile dementia. We will continue Aricept 10 mg p.o. at bedtime. 12. Fibromyalgia. We will continue Lyrica 75 mg p.o. at bedtime, tramadol on p.r.n. basis. 13. Physical deconditioning. Patient will need PT, OT, and eventual placement to assisted home. 14. Deep venous thrombosis prophylaxis, Lovenox 40 mg subcutaneously daily. 15. Gastrointestinal prophylaxis, Pepcid 20 mg p.o. b.i.d. 16. Code status: As per discharge summary dictated by Dr. Harley, patient was FULL CODE on 05/02/2017. We will keep as a FULL CODE. Disposition plan based on clinical course. We are expecting patient's stay in hospital more than 2 midnights. Plan of care discussed with the patient in detail. [facility]
[2017-05-18 17:14] LABS: CKMB 0.7 ng/mL (0-6.6)
[2017-05-18] MEDS ORDERED: HYDROcodone/Acetaminophen 5/325 mg Tablet ONE (18:05)
[2017-05-18 20:31] LABS: CKMB 0.8 ng/mL (0-6.6); Troponin I 0.034 ng/mL (< 0.028)
[2017-05-18] MEDS: Piperacillin-Tazo-Dextrose,Iso 3.375 GM in Premix Bag 1 BAG IVPB SCH (22:10)
[2017-05-18] MEDS: Pregabalin 75 MG CAP PO SCH (22:25)
[2017-05-18] MEDS: Donepezil HCl 10 MG TAB PO SCH (22:26)
[2017-05-18] MEDS: Vancomycin HCl 1 GM in Premix Bag 1 BAG IVPB SCH (22:26)
[2017-05-18] MEDS: Losartan 25 MG TAB PO SCH (22:26)
[2017-05-18] MEDS: Famotidine 20 MG TAB PO SCH (22:26)
[2017-05-19] MEDS: Piperacillin-Tazo-Dextrose,Iso 3.375 GM in Premix Bag 1 BAG IVPB SCH ×5 (00:10→22:56)
[2017-05-19] MEDS: Levothyroxine Sodium 75 MCG TAB PO SCH (06:20)
[2017-05-19 06:48] LABS: ALT (SGPT) 20 U/L (8-55); AST (SGOT) 25 U/L (5-34); Albumin 2.5 g/dL (3.4-4.8); Alkaline Phosphatase 151 U/L (40-150); Anion Gap 13 mmol/L (10-20); BUN (Urea Nitrogen) 23 mg/dL (9.8-20.1); Bilirubin, Total 1.2 mg/dL (0.2-1.2); Calc. Creatinine Clearance 52 mL/min (70-130); Calcium 8.1 mg/dL (7.8-10.44); Carbon Dioxide 19 mmol/L (23-31); Chloride 105 mmol/L (98-107); Estimated GFR-MDRD 67; Globulin 2.8 g/dL (2.4-3.5); Glucose 97 mg/dL (83-110); Potassium 3.8 mmol/L (3.5-5.1); Protein, Total 5.3 g/dL (6.0-8.3); Sodium 133 mmol/L (136-145)
[2017-05-19 07:42] LABS: Anisocytosis SLIGHT = 6-15 cells (100X) (0-5/hpf); Band 2 % (5-11); Burr Cells SLIGHT = 2-5 cells (100X) (0-1/hpf); Hemoglobin 10.1 g/dL (12.0-16.0); Lymphocytes 8 % (21-51); MDiff Complete? YES; Mean Corpuscular HGB CONC 31.6 g/dL (32.0-36.0); Mean Corpuscular Hemoglobin 31.5 pg (27.0-31.0); Mean Corpuscular Volume 99.7 fl (81.0-99.0); Mean Platelet Volume 8.1 fL (7.4-10.4); Monocytes 2 % (0-10); Neutrophil 88 % (42-75); Platelet Count 208 thou/uL (130-400); RBC Distribution Width 13.4 % (11.5-14.5); Red Blood Cell (RBC) Count 3.21 mill/uL (4.20-5.40); White Blood Cell (WBC) Count 23.2 thou/uL (4.8-10.8)
[2017-05-19] MEDS ORDERED: Simethicone Chewable 80 MG TAB PO PRN (07:51)
[2017-05-19] MEDS ORDERED: Prevnar 13-Val Conj/PF 0.5 ML SYRINGE IM ONE (09:00)
[2017-05-19] MEDS ORDERED: Levothyroxine Sodium 75 MCG TAB PO SCH (09:00)
--- NOTE | 2017-05-19 10:10 | PDOC.PN ---
- Subjective Encounter Start Date: 05/19/17 Encounter Start Time: 07:15 -: old records requested/rev Patient seen and examined. No new complaints. No overnight events - Objective Resuscitation Status: Resuscitation Status FULL:Full Resuscitation MAR Reviewed: Yes Vital Signs & Weight: Vital Signs (12 hours) Temp Pulse Resp BP BP Pulse Ox 05/19/17 08:41 99.6 F 05/19/17 08:00 100 F H 96 20 166/77 H 96 05/19/17 04:00 100.3 F H 81 20 163/70 H 95 05/19/17 00:00 92 16 159/69 H 05/18/17 23:39 98.6 F 81 20 99 Weight Weight 154 lb Result Diagrams: 05/19/17 05:23 05/19/17 05:23 EKG Reviewed by me: Yes Phys Exam - Physical Examination Constitutional: NAD HEENT: PERRLA, moist MMs, sclera anicteric Neck: no JVD, supple Respiratory: no wheezing, no rales, no rhonchi Cardiovascular: RRR, no significant murmur, no rub Gastrointestinal: soft, non-tender, no distention, positive bowel sounds Musculoskeletal: no edema, pulses present Neurological: non-focal, normal sensation Lymphatic: no nodes Psychiatric: normal affect Skin: no rash, normal turgor Dx/Plan (1) Abnormal LFTs Code(s): R79.89 - OTHER SPECIFIED ABNORMAL FINDINGS OF BLOOD CHEMISTRY Status : Acute (2) Demand ischemia Code(s): I24.8 - OTHER FORMS OF ACUTE ISCHEMIC HEART DISEASE Status: Acute (3) Encephalopathy acute Code(s): G93.40 - ENCEPHALOPATHY, UNSPECIFIED Status: Acute (4) Healthcare associated bacterial pneumonia Code(s): J15.9 - UNSPECIFIED BACTERIAL PNEUMONIA Status: Acute (5) Hyponatremia Code(s): E87.1 - HYPO-OSMOLALITY AND HYPONATREMIA Status: Acute (6) Physical deconditioning Code(s): R53.81 - OTHER MALAISE Status: Acute (7) Sepsis with acute organ dysfunction Code(s): A41.9 - SEPSIS, UNSPECIFIED ORGANISM; R65.20 - SEVERE SEPSIS WITHOUT SEPTIC SHOCK Status: Acute (8) Anxiety and depression Code(s): F41.8 - OTHER SPECIFIED ANXIETY DISORDERS Status: Chronic (9) CAD (coronary artery disease) Code(s): I25.10 - ATHSCL HEART DISEASE OF [place] CORONARY ARTERY W/O ANG PCTRS Status: Chronic (10) HTN (hypertension) Code(s): I10 - ESSENTIAL (PRIMARY) HYPERTENSION Status: Chronic (11) Hypothyroidism Code(s): E03.9 - HYPOTHYROIDISM, UNSPECIFIED Status: Chronic (12) Senile dementia Code(s): F03.90 - UNSPECIFIED DEMENTIA WITHOUT BEHAVIORAL DISTURBANCE Status: Chronic (13) Bacteremia due to Staphylococcus aureus Code(s): R78.81 - BACTEREMIA Status: Acute - Plan cont current plan of care, continue antibiotics * continue vancomycin and zosyn * follow culture, positive for staph so far * medication reviewed as below * symptomatic treatment. Review of Systems - Review of Systems Eyes: negative: Pain, Vision Change, Conjunctivae Inflammation, Eyelid Inflammation, Redness, Other ENT: negative: Ear Pain, Ear Discharge, Nose Pain, Nose Discharge, Nose Congestion, Mouth Pain, Mouth Swelling, Throat Pain, Throat Swelling, Other Respiratory: negative: Cough, Dry, Shortness of Breath, Hemoptysis, SOB with Excertion, Pleuritic Pain, Sputum, Wheezing Cardiovascular: negative: chest pain, palpitations, orthopnea, paroxysmal nocturnal dyspnea, edema, light headedness, other Gastrointestinal: negative: Nausea, Vomiting, Abdominal Pain, Diarrhea, Constipation, Melena, Hematochezia, Other Genitourinary: negative: Dysuria, Frequency, Incontinence, Hematuria, Retention , Other Musculoskeletal: negative: Neck Pain, Shoulder Pain, Arm Pain, Back Pain, Hand Pain, Leg Pain, Foot Pain, Other Skin: negative: Rash, Lesions, Arpit, Bruising, Other - Medications/Allergies Allergies/Adverse Reactions: Allergies Allergy/AdvReac Type Severity Reaction Status Date / Time No Known Allergies Allergy Verified 04/28/17 11:45 Medications: Current Medications Acetaminophen (Tylenol) 650 mg PO Q4H PRN PRN Reason: Headache/Fever or Pain Hydrocodone Bitart/Acetaminophen ([place] 5/325) 1 tab PO Q4H PRN PRN Reason: Moderate Pain (4-6) Al Hydroxide/Mg Hydroxide (Maalox) 30 ml PO Q6H PRN PRN Reason: Heartburn or Indigestion Artificial Tears (Tears Naturale) 0 drop EA EYE PRN PRN PRN Reason: Dry Eyes Aspirin (Aspirin Chewable) 81 mg PO DAILY [facility] Benzonatate (Tessalon) 100 mg PO Q4H PRN PRN Reason: Cough Bupropion HCl (Wellbutrin Sr) 150 mg PO DAILY [facility] Donepezil HCl (Aricept) 10 mg PO [facility] Last Admin: 05/18/17 22:26 Dose: 10 mg Enoxaparin Sodium (Lovenox) 40 mg SC 0900 [facility] Escitalopram Oxalate (Lexapro) 20 mg PO DAILY [facility] Famotidine (Pepcid) 20 mg PO BID [facility] Last Admin: 05/18/17 22:26 Dose: 20 mg Guaifenesin (Robitussin Sf) 200 mg PO Q4H PRN PRN Reason: Cough Hydralazine HCl (Apresoline) 10 mg SLOW IVP Q4H PRN PRN Reason: Systolic BP > 180 Piperacillin/Tazobactam/ (Dextrose 3.375 gm/ Device) 50 mls @ 100 mls/hr IVPB Q6HR [facility] Last Admin: 05/19/17 06:20 Dose: 50 mls Levofloxacin 500 mg/ Device 100 mls @ 100 mls/hr IVPB 0900 [facility] Vancomycin HCl 1 gm/ Device 200 mls @ 200 mls/hr IVPB Q12HR [facility] Last Admin: 05/18/17 22:26 Dose: 200 mls Levothyroxine Sodium (Synthroid) 75 mcg PO 0600 [facility] Last Admin: 05/19/17 06:20 Dose: 75 mcg Loperamide HCl (Imodium) 2 mg PO PRN PRN PRN Reason: Diarrhea/Loose Stools Loratadine (Claritin) 10 mg PO DAILYPRN PRN PRN Reason: Sinus Symptoms Losartan Potassium (Cozaar) 25 mg PO [facility] Last Admin: 05/18/17 22:26 Dose: 25 mg Magnesium Hydroxide (Milk Of Magnesium) 30 ml PO DAILYPRN PRN PRN Reason: Constipation Mineral Oil/White Petrolatum (Eucerin Cream) 0 gm TOP BIDPRN PRN PRN Reason: Dry Skin Miscellaneous Medication (Pharmacy To Dose) 0 each IVPB ASDIR PRN PRN Reason: Pharmacy to Dose VANCOMYCIN Ondansetron HCl (Zofran Odt) 4 mg PO Q6H PRN PRN Reason: Nausea/Vomiting Ondansetron HCl (Zofran) 4 mg IVP Q6H PRN PRN Reason: Nausea/Vomiting Phenol (Chloraseptic [place] 180 Ml Bot) 0 ml PO PRN PRN PRN Reason: Sore Throat Polyethylene Glycol (Miralax) 17 gm PO DAILY [facility] Pregabalin (Lyrica) 75 mg PO HS [facility] Last Admin: 05/18/17 22:25 Dose: 75 mg Saccharomyces Boulardii (Florastor) 250 mg PO DAILY [facility] Senna (Senokot) 2 tab PO HSPRN PRN PRN Reason: Constipation Simethicone (Mylicon Chewable) 80 mg PO TID PRN PRN Reason: Gas Pain Sodium Chloride ([place] Nasal [place] 0.65%) 0 ml EA NARE QIDPRN PRN PRN Reason: Nasal Congestion Tramadol HCl (Ultram) 50 mg PO Q6H PRN PRN Reason: Pain 1-3 Zolpidem Tartrate (Ambien) 5 mg PO HSPRN PRN PRN Reason: Insomnia
[2017-05-19] MEDS: Saccharomyces boulardii 250 MG CAP PO SCH (11:11)
[2017-05-19] MEDS: Famotidine 20 MG TAB PO SCH ×2 (11:11→21:39)
[2017-05-19] MEDS: Escitalopram Oxalate 20 mg Tablet PO SCH (11:11)
[2017-05-19] MEDS: Bupropion 150 MG SR TAB PO SCH (11:11)
[2017-05-19] MEDS: Vancomycin HCl 1 GM in Premix Bag 1 BAG IVPB SCH ×2 (11:12→21:29)
[2017-05-19] MEDS: Acetaminophen 325 MG TAB PO PRN (11:12)
[2017-05-19] MEDS: Enoxaparin Sodium 40 MG/0.4 ML SYRINGE SC SCH (17:22)
[2017-05-19] MEDS: Polyethylene Glycol 3350 17 GM Packet PO SCH (18:07)
[2017-05-19] MEDS: traMADol HCl 50 MG TAB PO PRN (21:36)
[2017-05-19] MEDS: Donepezil HCl 10 MG TAB PO SCH (21:36)
[2017-05-19] MEDS: Pregabalin 75 MG CAP PO SCH (21:38)
[2017-05-19] MEDS: Losartan 25 MG TAB PO SCH (21:38)
[2017-05-19] MEDS: HYDROcodone/Acetaminophen 5/325 mg Tablet PO PRN (23:02)
[2017-05-20] MEDS: HYDROcodone/Acetaminophen 5/325 mg Tablet PO PRN ×4 (02:59→21:44)
[2017-05-20] MEDS ORDERED: traZODone HCl 50 MG TAB PO SCH (03:45)
[2017-05-20] MEDS: Levothyroxine Sodium 75 MCG TAB PO SCH (06:28)
[2017-05-20] MEDS: Piperacillin-Tazo-Dextrose,Iso 3.375 GM in Premix Bag 1 BAG IVPB SCH ×3 (06:28→18:13)
[2017-05-20] MEDS: Famotidine 20 MG TAB PO SCH ×2 (09:36→21:37)
[2017-05-20] MEDS: Bupropion 150 MG SR TAB PO SCH (09:36)
[2017-05-20] MEDS: Escitalopram Oxalate 20 mg Tablet PO SCH (09:36)
[2017-05-20] MEDS: Saccharomyces boulardii 250 MG CAP PO SCH (09:36)
[2017-05-20] MEDS: Polyethylene Glycol 3350 17 GM Packet PO SCH (09:37)
[2017-05-20] MEDS: Enoxaparin Sodium 40 MG/0.4 ML SYRINGE SC SCH (09:37)
[2017-05-20] MEDS: Vancomycin HCl 1 GM in Premix Bag 1 BAG IVPB SCH ×2 (09:39→21:38)
--- NOTE | 2017-05-20 13:33 | PDOC.PN ---
- Subjective Encounter Start Date: 05/20/17 Encounter Start Time: 13:30 Patient seen and examined, no new issues, daughter at bedside, per daughter the patient is not at her baseline and appears worse than before. All questions answered. - Objective Resuscitation Status: Resuscitation Status FULL:Full Resuscitation Vital Signs & Weight: Vital Signs (12 hours) Temp Pulse Resp BP BP Pulse Ox 05/20/17 11:49 98 F 68 16 162/76 H 96 05/20/17 08:00 98.0 F 90 19 142/72 H 96 Weight Admit Weight 154 lb Weight 154 lb I&O: 05/19/17 05/20/17 05/21/17 06:59 06:59 06:59 Intake Total 360 Output Total 600 Balance -600 360 Result Diagrams: 05/19/17 05:23 05/19/17 05:23 Phys Exam - Physical Examination Constitutional: NAD confused frail appearing HEENT: PERRLA, moist MMs Neck: no nodes, no JVD Respiratory: no wheezing, no rales Cardiovascular: RRR 2/6 LORNA Gastrointestinal: soft, non-tender Musculoskeletal: no edema, pulses present Neurological: normal sensation Dx/Plan (1) Confusion Code(s): R41.0 - DISORIENTATION, UNSPECIFIED Status: Acute (2) Sepsis Code(s): A41.9 - SEPSIS, UNSPECIFIED ORGANISM Status: Acute (3) Encephalopathy acute Code(s): G93.40 - ENCEPHALOPATHY, UNSPECIFIED Status: Acute (4) Healthcare associated bacterial pneumonia Code(s): J15.9 - UNSPECIFIED BACTERIAL PNEUMONIA Status: Acute (5) Physical deconditioning Code(s): R53.81 - OTHER MALAISE Status: Acute (6) CAD (coronary artery disease) Code(s): I25.10 - ATHSCL HEART DISEASE OF [place] CORONARY ARTERY W/O ANG PCTRS Status: Chronic (7) HTN (hypertension) Code(s): I10 - ESSENTIAL (PRIMARY) HYPERTENSION Status: Chronic - Plan * continue with current plan of care for now * plan for LTAC vs SNF vs rehab in the long run, at this point in time patient appears that she may benefit from LTAC placement for IV abx as well as pursuing the etiology of her mental status change, per daughter her mental status 2-3 weeks ago was completely normal * no other changes in plan for now * repeat labs in AM * case and plan d/w patient's daughter at length, she understands and agrees with this plan
[2017-05-20] MEDS: Losartan 25 MG TAB PO SCH (21:37)
[2017-05-20] MEDS: Donepezil HCl 10 MG TAB PO SCH (21:37)
[2017-05-20] MEDS: Pregabalin 75 MG CAP PO SCH (21:37)
[2017-05-21 06:12] LABS: Anion Gap 13 mmol/L (10-20); BUN (Urea Nitrogen) 19 mg/dL (9.8-20.1); Calc. Creatinine Clearance 62 mL/min (70-130); Calcium 8.1 mg/dL (7.8-10.44); Carbon Dioxide 18 mmol/L (23-31); Chloride 103 mmol/L (98-107); Estimated GFR-MDRD 81; Glucose 79 mg/dL (83-110); Potassium 3.5 mmol/L (3.5-5.1); Sodium 130 mmol/L (136-145)
[2017-05-21] MEDS: Piperacillin-Tazo-Dextrose,Iso 3.375 GM in Premix Bag 1 BAG IVPB SCH ×2 (06:40)
[2017-05-21] MEDS: Levothyroxine Sodium 75 MCG TAB PO SCH (07:39)
[2017-05-21 08:43] LABS: Vancomycin, Trough 21.9 ug/mL
[2017-05-21] MEDS: Escitalopram Oxalate 20 mg Tablet PO SCH (08:58)
[2017-05-21] MEDS: Famotidine 20 MG TAB PO SCH ×2 (08:59→21:10)
[2017-05-21] MEDS: HYDROcodone/Acetaminophen 5/325 mg Tablet PO PRN ×2 (08:59→14:51)
[2017-05-21] MEDS: Saccharomyces boulardii 250 MG CAP PO SCH (08:59)
[2017-05-21] MEDS: Enoxaparin Sodium 40 MG/0.4 ML SYRINGE SC SCH (08:59)
[2017-05-21] MEDS: Bupropion 150 MG SR TAB PO SCH (08:59)
[2017-05-21] MEDS: Polyethylene Glycol 3350 17 GM Packet PO SCH (09:03)
[2017-05-21] MEDS: Vancomycin HCl 750 MG in Sodium Chloride 0.9% 250 ML 250 ML IVPB SCH ×2 (10:28→21:09)
--- NOTE | 2017-05-21 11:13 | PDOC.PN ---
- Subjective Encounter Start Date: 05/21/17 Encounter Start Time: 11:12 Patient seen and examined, no new issues, PO diet to started today - Objective Resuscitation Status: Resuscitation Status FULL:Full Resuscitation Vital Signs & Weight: Vital Signs (12 hours) Temp Pulse Resp BP BP Pulse Ox 05/21/17 08:00 98.1 F 78 19 160/80 H 96 05/21/17 04:00 98.7 F 77 20 95 05/21/17 00:00 99.0 F 82 20 148/73 H 140/88 97 Weight Admit Weight 154 lb Weight 154 lb I&O: 05/20/17 05/21/17 05/22/17 06:59 06:59 06:59 Intake Total 1320 360 Output Total 600 750 Balance -600 570 360 Result Diagrams: 05/19/17 05:23 05/21/17 05:17 Phys Exam - Physical Examination Constitutional: NAD HEENT: PERRLA, moist MMs Neck: no nodes, no JVD Respiratory: no wheezing, no rales Cardiovascular: RRR, no significant murmur Gastrointestinal: soft, non-tender, no distention Musculoskeletal: no edema, pulses present Neurological: non-focal, normal sensation Psychiatric: normal affect Skin: no rash, normal turgor Dx/Plan (1) Confusion Code(s): R41.0 - DISORIENTATION, UNSPECIFIED Status: Acute (2) Sepsis Code(s): A41.9 - SEPSIS, UNSPECIFIED ORGANISM Status: Acute (3) Encephalopathy acute Code(s): G93.40 - ENCEPHALOPATHY, UNSPECIFIED Status: Acute (4) Healthcare associated bacterial pneumonia Code(s): J15.9 - UNSPECIFIED BACTERIAL PNEUMONIA Status: Acute (5) Physical deconditioning Code(s): R53.81 - OTHER MALAISE Status: Acute (6) CAD (coronary artery disease) Code(s): I25.10 - ATHSCL HEART DISEASE OF [place] CORONARY ARTERY W/O ANG PCTRS Status: Chronic (7) HTN (hypertension) Code(s): I10 - ESSENTIAL (PRIMARY) HYPERTENSION Status: Chronic - Plan * s/p ERCP * surgery following as well * diet to be started today * continue current plan for now * case and plan d/w patient's family at [facility], they understand and agree with this plan
[2017-05-21] MEDS: Piperacillin/Tazobactam 3.375 GM in Sodium Chloride 0.9% 100 ML IVPB SCH ×2 (12:49→17:22)
[2017-05-21] MEDS: Pregabalin 75 MG CAP PO SCH (21:09)
[2017-05-21] MEDS: Losartan 25 MG TAB PO SCH (21:09)
[2017-05-21] MEDS: Donepezil HCl 10 MG TAB PO SCH (21:10)
[2017-05-22] MEDS: Piperacillin/Tazobactam 3.375 GM in Sodium Chloride 0.9% 100 ML IVPB SCH ×2 (01:28→05:43)
[2017-05-22] MEDS: hydrALAZINE 20 MG/ML VIAL SLOW IVP PRN ×2 (01:29→08:38)
[2017-05-22] MEDS ORDERED: Clopidogrel Bisulfate 75 MG TAB ONE (05:36)
[2017-05-22] MEDS: Levothyroxine Sodium 75 MCG TAB PO SCH (05:43)
[2017-05-22] MEDS: traMADol HCl 50 MG TAB PO PRN (05:44)
[2017-05-22] MEDS: Vancomycin HCl 750 MG in Sodium Chloride 0.9% 250 ML 250 ML IVPB SCH ×2 (08:32→20:38)
[2017-05-22] MEDS: cefTRIAXone\\ROCEPHIN 2 GM in Sodium Chloride 0.9% 100 ML IVPB SCH (08:32)
[2017-05-22] MEDS: Saccharomyces boulardii 250 MG CAP PO SCH ×2 (08:33→10:11)
[2017-05-22] MEDS: Polyethylene Glycol 3350 17 GM Packet PO SCH (08:33)
[2017-05-22] MEDS: Famotidine 20 MG TAB PO SCH ×3 (08:33→20:40)
[2017-05-22] MEDS: Bupropion 150 MG SR TAB PO SCH ×2 (08:33→10:10)
[2017-05-22] MEDS: Acetaminophen 325 MG TAB PO PRN (08:37)
[2017-05-22] MEDS: Escitalopram Oxalate 20 mg Tablet PO SCH (08:53)
[2017-05-22] MEDS: Enoxaparin Sodium 40 MG/0.4 ML SYRINGE SC SCH (08:54)
--- NOTE | 2017-05-22 12:22 | PDOC.PN ---
- Subjective Encounter Start Date: 05/22/17 Encounter Start Time: 08:50 -: old records requested/rev pt is confused, Patient seen and examined. No overnight events - Objective Resuscitation Status: Resuscitation Status FULL:Full Resuscitation MAR Reviewed: Yes Vital Signs & Weight: Vital Signs (12 hours) Temp Pulse Resp BP BP Pulse Ox 05/22/17 11:08 98.4 F 94 16 92 L 05/22/17 11:00 98.4 F 94 16 152/62 H 92 L 05/22/17 08:38 93 193/77 H 05/22/17 08:00 100.2 F H 93 22 H 193/77 H 96 05/22/17 04:00 98.8 F 96 20 172/74 H 95 05/22/17 03:00 172/76 H 05/22/17 01:29 105 H Weight Admit Weight 154 lb Weight 154 lb I&O: 05/21/17 05/22/17 05/23/17 06:59 06:59 06:59 Intake Total 1320 1650 Output Total 750 1100 Balance 570 550 Result Diagrams: 05/19/17 05:23 05/21/17 05:17 EKG Reviewed by me: Yes Phys Exam - Physical Examination Constitutional: NAD HEENT: PERRLA, moist MMs, sclera anicteric Neck: no JVD, supple Respiratory: no wheezing, no rales, no rhonchi Cardiovascular: RRR, no rub SM+ Gastrointestinal: soft, non-tender, no distention, positive bowel sounds Musculoskeletal: no edema, pulses present unable to assess today Lymphatic: no nodes Deviation from normal: unable to assess Skin: no rash, normal turgor Dx/Plan (1) Abnormal LFTs Code(s): R79.89 - OTHER SPECIFIED ABNORMAL FINDINGS OF BLOOD CHEMISTRY Status : Acute (2) Demand ischemia Code(s): I24.8 - OTHER FORMS OF ACUTE ISCHEMIC HEART DISEASE Status: Acute (3) Encephalopathy acute Code(s): G93.40 - ENCEPHALOPATHY, UNSPECIFIED Status: Acute (4) Healthcare associated bacterial pneumonia Code(s): J15.9 - UNSPECIFIED BACTERIAL PNEUMONIA Status: Acute (5) Hyponatremia Code(s): E87.1 - HYPO-OSMOLALITY AND HYPONATREMIA Status: Acute (6) Physical deconditioning Code(s): R53.81 - OTHER MALAISE Status: Acute (7) Sepsis with acute organ dysfunction Code(s): A41.9 - SEPSIS, UNSPECIFIED ORGANISM; R65.20 - SEVERE SEPSIS WITHOUT SEPTIC SHOCK Status: Acute (8) Anxiety and depression Code(s): F41.8 - OTHER SPECIFIED ANXIETY DISORDERS Status: Chronic (9) CAD (coronary artery disease) Code(s): I25.10 - ATHSCL HEART DISEASE OF [place] CORONARY ARTERY W/O ANG PCTRS Status: Chronic (10) HTN (hypertension) Code(s): I10 - ESSENTIAL (PRIMARY) HYPERTENSION Status: Chronic (11) Hypothyroidism Code(s): E03.9 - HYPOTHYROIDISM, UNSPECIFIED Status: Chronic (12) Senile dementia Code(s): F03.90 - UNSPECIFIED DEMENTIA WITHOUT BEHAVIORAL DISTURBANCE Status: Chronic (13) Bacteremia due to Staphylococcus aureus Code(s): R78.81 - BACTEREMIA Status: Acute (14) UTI (urinary tract infection), bacterial Code(s): N39.0 - URINARY TRACT INFECTION, SITE NOT SPECIFIED; A49.9 - BACTERIAL INFECTION, UNSPECIFIED Status: Acute - Plan cont current plan of care, continue antibiotics, PT/OT, nephrology social worker * dc levaquin and zosyn * add rocephin * continue vancomycin * repeat labs and blood culture tomorrow * medication reviewed as below * symptomatic treatment. Review of Systems - Review of Systems Other: unable to review due to encephalopathy - Medications/Allergies Allergies/Adverse Reactions: Allergies Allergy/AdvReac Type Severity Reaction Status Date / Time No Known Allergies Allergy Verified 04/28/17 11:45 Medications: Current Medications Acetaminophen (Tylenol) 650 mg PO Q4H PRN PRN Reason: Headache/Fever or Pain Last Admin: 05/22/17 08:37 Dose: 650 mg Hydrocodone Bitart/Acetaminophen ([place] 5/325) 1 tab PO Q4H PRN PRN Reason: Moderate Pain (4-6) Last Admin: 05/21/17 14:51 Dose: 1 tab Al Hydroxide/Mg Hydroxide (Maalox) 30 ml PO Q6H PRN PRN Reason: Heartburn or Indigestion Artificial Tears (Tears Naturale) 0 drop EA EYE PRN PRN PRN Reason: Dry Eyes Aspirin (Aspirin Chewable) 81 mg PO DAILY [facility] Last Admin: 05/22/17 08:48 Dose: Not Given Benzonatate (Tessalon) 100 mg PO Q4H PRN PRN Reason: Cough Bupropion HCl (Wellbutrin Sr) 150 mg PO DAILY [facility] Last Admin: 05/22/17 10:10 Dose: Not Given Donepezil HCl (Aricept) 10 mg PO [facility] Last Admin: 05/21/17 21:10 Dose: 10 mg Enoxaparin Sodium (Lovenox) 40 mg SC 0900 [facility] Last Admin: 05/22/17 08:54 Dose: 40 mg Escitalopram Oxalate (Lexapro) 20 mg PO DAILY [facility] Last Admin: 05/22/17 08:53 Dose: Not Given Famotidine (Pepcid) 20 mg PO BID [facility] Last Admin: 05/22/17 08:47 Dose: Not Given Guaifenesin (Robitussin Sf) 200 mg PO Q4H PRN PRN Reason: Cough Hydralazine HCl (Apresoline) 10 mg SLOW IVP Q4H PRN PRN Reason: Systolic BP > 180 Last Admin: 05/22/17 08:38 Dose: 10 mg Vancomycin HCl 750 mg/ Sodium (Chloride) 250 mls @ 250 mls/hr IVPB Q12HR [facility] Last Admin: 05/22/17 08:32 Dose: 250 mls Ceftriaxone Sodium 2 gm/ (Sodium Chloride) 100 mls @ 200 mls/hr IVPB Q24HR@ 0800 [facility] Last Admin: 05/22/17 08:32 Dose: 100 mls Levothyroxine Sodium (Synthroid) 75 mcg PO 0600 [facility] Last Admin: 05/22/17 05:43 Dose: 75 mcg Loperamide HCl (Imodium) 2 mg PO PRN PRN PRN Reason: Diarrhea/Loose Stools Loratadine (Claritin) 10 mg PO DAILYPRN PRN PRN Reason: Sinus Symptoms Losartan Potassium (Cozaar) 25 mg PO [facility] Last Admin: 05/21/17 21:09 Dose: 25 mg Magnesium Hydroxide (Milk Of Magnesium) 30 ml PO DAILYPRN PRN PRN Reason: Constipation Mineral Oil/White Petrolatum (Eucerin Cream) 0 gm TOP BIDPRN PRN PRN Reason: Dry Skin Miscellaneous Medication (Pharmacy To Dose) 0 each IVPB ASDIR PRN PRN Reason: Pharmacy to Dose VANCOMYCIN Ondansetron HCl (Zofran Odt) 4 mg PO Q6H PRN PRN Reason: Nausea/Vomiting Ondansetron HCl (Zofran) 4 mg IVP Q6H PRN PRN Reason: Nausea/Vomiting Phenol (Chloraseptic [place] 180 Ml Bot) 0 ml PO PRN PRN PRN Reason: Sore Throat Polyethylene Glycol (Miralax) 17 gm PO DAILY [facility] Last Admin: 05/22/17 08:33 Dose: Not Given Pregabalin (Lyrica) 75 mg PO [facility] Last Admin: 05/21/17 21:09 Dose: 75 mg Saccharomyces Boulardii (Florastor) 250 mg PO DAILY [facility] Last Admin: 05/22/17 10:11 Dose: Not Given Senna (Senokot) 2 tab PO HSPRN PRN PRN Reason: Constipation Simethicone (Mylicon Chewable) 80 mg PO TID PRN PRN Reason: Gas Pain Sodium Chloride ([place] Nasal [place] 0.65%) 0 ml EA NARE QIDPRN PRN PRN Reason: Nasal Congestion Tramadol HCl (Ultram) 50 mg PO Q6H PRN PRN Reason: Pain 1-3 Last Admin: 05/22/17 05:44 Dose: 50 mg Zolpidem Tartrate (Ambien) 5 mg PO HSPRN PRN PRN Reason: Insomnia
[2017-05-22 12:38] LABS: Actual Bicarbonate (HCO3a) 21.9 mEq/L (22-26); Base Excess (BEa) -0.8 mEq/L (0 (+/-) 2.5); CO2 Tension 29.1 mmHg (35.0-45.0); Calcium, Ionized 1.1 mmol/L (1.12-1.30); Hematocrit-ABG 31.3 % (36.0-47.0); Hemoglobin (Hb) 9.5 g/dL (12.0-16.0); O2 Tension (PaO2) 78.5 mmHg (80.0-100.0); pH, Arterial 7.49 (7.35-7.45)
[2017-05-22 12:41] LABS: Puncture Site L.R.
[2017-05-22 12:42] LABS: ALV-art Gradient 84.485 (0-20)
[2017-05-22 13:06] LABS: Hemoglobin 10.7 g/dL (12.0-16.0); Mean Corpuscular HGB CONC 33.2 g/dL (32.0-36.0); Mean Corpuscular Hemoglobin 31.9 pg (27.0-31.0); Mean Corpuscular Volume 95.9 fl (81.0-99.0); Mean Platelet Volume 8.4 fL (7.4-10.4); Platelet Count 247 thou/uL (130-400); RBC Distribution Width 13.8 % (11.5-14.5); Red Blood Cell (RBC) Count 3.35 mill/uL (4.20-5.40); White Blood Cell (WBC) Count 17.9 thou/uL (4.8-10.8)
[2017-05-22 13:09] LABS: INR-International Normal Ratio 1.2; Prothrombin Time 15.3 SEC (12.0-14.7)
[2017-05-22 13:26] LABS: ALT (SGPT) 40 U/L (8-55); AST (SGOT) 53 U/L (5-34); Albumin 2.2 g/dL (3.4-4.8); Alkaline Phosphatase 158 U/L (40-150); Anion Gap 14 mmol/L (10-20); BUN (Urea Nitrogen) 18 mg/dL (9.8-20.1); Bilirubin, Total 1.5 mg/dL (0.2-1.2); Calc. Creatinine Clearance 57 mL/min (70-130); Calcium 8.2 mg/dL (7.8-10.44); Carbon Dioxide 21 mmol/L (23-31); Chloride 103 mmol/L (98-107); Estimated GFR-MDRD 74; Globulin 3.4 g/dL (2.4-3.5); Glucose 96 mg/dL (83-110); Protein, Total 5.6 g/dL (6.0-8.3); Sodium 135 mmol/L (136-145)
[2017-05-22 13:30] LABS: Lactic Acid 1.2 mmol/L (0.5-2.2)
[2017-05-22 13:31] LABS: Potassium 2.7 mmol/L (3.5-5.1)
--- NOTE | 2017-05-22 13:36 | RAD ---
PORTABLE AP CHEST RADIOGRAPH: Date: 05-22-17 History: Altered mental status and sepsis. Comparison: 05-18-17 FINDINGS: Cardiac silhouette and pulmonary vasculature are within normal limits for portable technique of the kelly hansen. Vascular calcification is again seen in the thoracic aorta. There is mild increase in perihilar interstitial density which is overall similar to the prior study. No focal consolidation or pleural fluid is identified. There has been no significant interval change from prior study. IMPRESSION: Mild nonspecific interstitial prominence at each lung base which is thought to most likely be related superimposition of overlying structures as opposed to infiltrate related to pneumonia. Chest is over all stable when compared to 05-18-17. POS: [facility]
[2017-05-22] MEDS ORDERED: Potassium Chloride 20 MEQ/100 ML PREMIX BAG IVPB SCH (13:45)
[2017-05-22 13:49] LABS: Band 2 % (5-11); Lymphocytes 1 % (21-51); MDiff Complete? YES; Monocytes 1 % (0-10); Neutrophil 96 % (42-75); PLT Morphology Comment Appears Adequate
[2017-05-22 13:59] LABS: Folate (Folic Acid) 14.2 ng/mL (7.0-31.4)
--- NOTE | 2017-05-22 14:39 | CT ---
NONCONTRAST CT HEAD: 05/22/2017 HISTORY: Altered mental status. COMPARISON: 03/13/2017 FINDINGS: Again noted are chronic small vessel ischemic changes and cerebral volume loss, not significantly pro gressed when compared to the prior exam. Low density areas are seen at each basal ganglia, suggestin g remote lacunar infarctions. There is no evidence of an acute cortical infarction, hemorrhage, mass effect, or midline shift. The ventricular system is normal in size, shape, and position for the deg ree of sulcal atrophy. There has been no interval change from the prior exam. IMPRESSION: 1. No acute intracranial abnormalities demonstrated. 2. Moderate to severe chronic small vessel ischemic changes, similar to prior exam. 3. Cerebral and cerebellar volume loss, also stable from prior exam. POS: [facility]
[2017-05-22] MEDS ORDERED: Potassium Chloride 20 MEQ in Sodium Chloride 0.9% 250 ML 250 ML IVPB SCH (15:45)
--- NOTE | 2017-05-22 19:22 | CON ---
DATE OF CONSULTATION: 05/22/2017 REASON FOR CONSULTATION: Bacteremia. HISTORY OF PRESENT ILLNESS: An 89-year-old who was admitted in this hospital in February with hypotension, acute kidney injury discharged on trazodone, Lyrica , Donepezil, losartan, Limbrel, bupropion, Synthroid, Lexapro and given nitrofurantoin. CT of brain again showed chronic small vessel ischemic changes. Then, on 04/2019, she was brought in with left intertrochanteric femur fracture. This was managed with nailing of the fracture site. After that , she was transferred back to [facility] and at this time, she was brought in with new onset of fever, tachypnea, and temperature 100.5, leukocytosis. She had an IV site which was probably from the previous hospital admission with purulent material and gram positive cocci. Initial findings included a BP 205/89, pulse 97, respiratory rate 24, temperature 100.5, O2 sat 95%. She appeared confused. Pupils are round. Neck is supple. Lungs with bibasilar inspiratory crackles. Few wheezes. Abdomen was not soft, nondistended and the incision in the hip appeared okay. The assessment was sepsis with organ dysfunction, encephalopathy, demand ischemia and possible pneumonia. A 1/2 sets of blood cultures have yielded Staphylococcus aureus with methicillin-susceptible phenotype. Urine culture with Staph aureus, but probably just a colonizer since it was less than 5000 colonies per mL. Currently, Ms. Summers is in the room after being transferred from telemetry. She has a friend in the room with her. She is obviously delirious, keeps her eyes closed and does not want to cooperate with the exam. Every time we tried to pull the sheet and blanket off, she would bring them right up saying that she did not want to get up. I could not get a full review of systems that way. Interviewing the nurse apparently she has had no diarrhea. She has a Obrien catheter in place. PAST MEDICAL HISTORY: Includes, hypothyroidism, osteoarthritis, hypertension, dementia, possibly with multiinfarct component and a recent left hip fracture managed with nailing. She also had a bladder suspension, colonoscopy, appendectomy, and hysterectomy. SOCIAL HISTORY: [facility] resident, never smoker. FAMILY HISTORY: Coronary artery disease. MEDICATIONS: At this time, include Tylenol, Maalox, Tears Naturale, Tessalon, ceftriaxone, Robitussin, loratadine, ondansetron, pregabalin, vancomycin. ALLERGIES: None. PHYSICAL EXAMINATION: GENERAL: Elderly female, no acute distress, but she is delirious, does not want to cooperate with the exam. VITAL SIGNS: T-max 100.3 and now 100.2 recently. BP 150/60, pulse 85, respirations 18, O2 sat 92%. SKIN: She has the incision for the hip surgery which is dry, still with jania , but no inflammatory changes, no drainage. She also has a right antecubital fossa, previous IV with a little bit of erythema and dried up small scab at the center, but no obvious drainage at this time, some induration noted. She has had bruising in the left upper extremity from IV access. No lymphadenopathy. She has alopecia. HEENT: Ocular movements are conjugate. Oral cavity with still a few teeth in place, quite a bit of decay and gum disease. NECK: Supple. No jugular venous distention. LUNGS: With symmetric air entry with some crackles at the bases. CARDIOVASCULAR: S1, S2, without murmurs. No S3 or S4. ABDOMEN: Flat, soft. Not distended. No ascites. No bladder distention. EXTREMITIES: She is able to move extremities with some limitations. NEUROLOGIC: She keeps her eyes closed and does not want to cooperate with the exam, does not interact with examiner other than resisting efforts to examine her. LABORATORY: White cell count 26,000, down to 17,000 at this time, hemoglobin 10 , platelets 247, 96% neutrophils. INR 1.2. PH 7.49, pCO2 of 29, pO2 of 78. Sodium 135, creatinine 0.74, AST 53, ALT 40, alkaline phosphatase 158, albumin 2.2. Urinalysis not remarkable except for some proteinuria. Imaging studies, we have a brain CT which yet to be interpreted. Chest x-ray with nonspecific interstitial prominence each lung base. Pelvis x-ray from 05/18/2017, recent open reduction internal fixation proximal left femur fracture. ASSESSMENT AND PLAN: 1. Dementia could be multi-infarct. 2. Recent left hip fracture managed with internal fixation. 3. Likely septic thrombophlebitis with methicillin-sensitive Staphylococcus aureus bacteremia. DISCUSSION: The patient unfortunately probably has another case of septic thrombophlebitis from prior IV access due to Staphylococcus aureus. The lung findings are probably secondary to the thrombophlebitis inflammatory process. Other sites of involvement are not apparent at this time; however, we will have to keep looking for those, for example spinal pain should narrate careful evaluation as well as other joint and bone site that might be involved by the Staphylococcal bacteremia. Endocarditis is less likely. We will continue Rocephin which would simplify the treatment in the longterm. In the skilled unit, she is going to need a PICC line placement. We will treat for 4- 6 weeks. IZZY
[2017-05-22 20:31] LABS: Vancomycin, Trough 15.6 ug/mL
[2017-05-22] MEDS: Losartan 25 MG TAB PO SCH (20:38)
[2017-05-22] MEDS: Pregabalin 75 MG CAP PO SCH (20:39)
[2017-05-22] MEDS: Donepezil HCl 10 MG TAB PO SCH (20:40)
[2017-05-23 04:41] LABS: #Eosinphils 0.1 thou/uL (0.0-0.7); #Lymphocytes 1.1 thou/uL (1.20-3.40); #Monocytes 0.9 thou/uL (0.11-0.59); #Neutrophils 12.6 thou/uL (1.40-6.50); %Basophils 0.2 % (0.0-1.0); %Eosinophils 0.4 % (0.0-10.0); %Lymphocytes 7.4 % (21.0-51.0); %Monocytes 6.1 % (0.0-10.0); %Neutrophils 85.9 % (42.0-75.0); Hemoglobin 9.9 g/dL (12.0-16.0); Mean Corpuscular HGB CONC 32.2 g/dL (32.0-36.0); Mean Corpuscular Hemoglobin 31.1 pg (27.0-31.0); Mean Corpuscular Volume 96.4 fl (81.0-99.0); Platelet Count 248 thou/uL (130-400); Red Blood Cell (RBC) Count 3.18 mill/uL (4.20-5.40); White Blood Cell (WBC) Count 14.7 thou/uL (4.8-10.8)
[2017-05-23 05:10] LABS: ALT (SGPT) 36 U/L (8-55); AST (SGOT) 46 U/L (5-34); Albumin 2.2 g/dL (3.4-4.8); Alkaline Phosphatase 148 U/L (40-150); Anion Gap 14 mmol/L (10-20); BUN (Urea Nitrogen) 19 mg/dL (9.8-20.1); Bilirubin, Total 1.1 mg/dL (0.2-1.2); Calc. Creatinine Clearance 65 mL/min (70-130); Carbon Dioxide 20 mmol/L (23-31); Chloride 106 mmol/L (98-107); Estimated GFR-MDRD 86; Globulin 3.3 g/dL (2.4-3.5); Glucose 92 mg/dL (83-110); Protein, Total 5.5 g/dL (6.0-8.3); Sodium 137 mmol/L (136-145)
[2017-05-23 05:14] LABS: Potassium 2.6 mmol/L (3.5-5.1)
[2017-05-23] MEDS: Levothyroxine Sodium 75 MCG TAB PO SCH (06:26)
[2017-05-23] MEDS ORDERED: Potassium Chloride 40 MEQ in Sodium Chloride 0.9% 500 ML IVPB SCH (06:30)
[2017-05-23] MEDS ORDERED: Potassium Chloride 20 MEQ TAB PO SCH (06:30)
[2017-05-23] MEDS ORDERED: Potassium Chloride 20 MEQ/100 ML PREMIX BAG IVPB SCH (07:30)
--- NOTE | 2017-05-23 10:40 | PDOC.PN ---
- Subjective Encounter Start Date: 05/23/17 Encounter Start Time: 09:10 Patient seen and examined. No new complaints. No overnight events pt is more alert but still confused - Objective Resuscitation Status: Resuscitation Status FULL:Full Resuscitation MAR Reviewed: Yes Vital Signs & Weight: Vital Signs (12 hours) Temp Pulse Resp BP Pulse Ox 05/23/17 07:15 104 H 19 171/62 H 98 05/23/17 04:00 99.6 F 82 20 171/60 H 99 05/23/17 00:00 74 24 H 157/66 H 94 L Weight Admit Weight 154 lb Weight 158 lb 14.4 oz I&O: 05/22/17 05/23/17 05/24/17 06:59 06:59 06:59 Intake Total 1650 1090 Output Total 1100 950 Balance 550 140 Result Diagrams: 05/23/17 04:22 05/23/17 04:22 Phys Exam - Physical Examination Constitutional: NAD HEENT: PERRLA, moist MMs, sclera anicteric Neck: no JVD, supple Respiratory: no wheezing, no rales, no rhonchi Cardiovascular: RRR, no significant murmur, no rub Gastrointestinal: soft, non-tender, no distention, positive bowel sounds Musculoskeletal: no edema, pulses present Neurological: non-focal, normal sensation, moves all 4 limbs Psychiatric: normal affect, A&O x 3 Skin: no rash, normal turgor Dx/Plan (1) Abnormal LFTs Code(s): R79.89 - OTHER SPECIFIED ABNORMAL FINDINGS OF BLOOD CHEMISTRY Status : Acute (2) Demand ischemia Code(s): I24.8 - OTHER FORMS OF ACUTE ISCHEMIC HEART DISEASE Status: Acute (3) Encephalopathy acute Code(s): G93.40 - ENCEPHALOPATHY, UNSPECIFIED Status: Acute (4) Healthcare associated bacterial pneumonia Code(s): J15.9 - UNSPECIFIED BACTERIAL PNEUMONIA Status: Acute (5) Hyponatremia Code(s): E87.1 - HYPO-OSMOLALITY AND HYPONATREMIA Status: Acute (6) Physical deconditioning Code(s): R53.81 - OTHER MALAISE Status: Acute (7) Sepsis with acute organ dysfunction Code(s): A41.9 - SEPSIS, UNSPECIFIED ORGANISM; R65.20 - SEVERE SEPSIS WITHOUT SEPTIC SHOCK Status: Acute (8) Anxiety and depression Code(s): F41.8 - OTHER SPECIFIED ANXIETY DISORDERS Status: Chronic (9) CAD (coronary artery disease) Code(s): I25.10 - ATHSCL HEART DISEASE OF [place] CORONARY ARTERY W/O ANG PCTRS Status: Chronic (10) HTN (hypertension) Code(s): I10 - ESSENTIAL (PRIMARY) HYPERTENSION Status: Chronic (11) Hypothyroidism Code(s): E03.9 - HYPOTHYROIDISM, UNSPECIFIED Status: Chronic (12) Senile dementia Code(s): F03.90 - UNSPECIFIED DEMENTIA WITHOUT BEHAVIORAL DISTURBANCE Status: Chronic (13) Bacteremia due to Staphylococcus aureus Code(s): R78.81 - BACTEREMIA Status: Acute (14) UTI (urinary tract infection), bacterial Code(s): N39.0 - URINARY TRACT INFECTION, SITE NOT SPECIFIED; A49.9 - BACTERIAL INFECTION, UNSPECIFIED Status: Acute - Plan cont current plan of care, continue antibiotics * medication reviewed as below * symptomatic treatment * continue IV vancomycin and rocephin * replace potassium today * repeat labs tomorrow * ID consulted. Review of Systems - Review of Systems Other: not reliable due to confusion - Medications/Allergies Allergies/Adverse Reactions: Allergies Allergy/AdvReac Type Severity Reaction Status Date / Time No Known Allergies Allergy Verified 04/28/17 11:45 Medications: Current Medications Acetaminophen (Tylenol) 650 mg PO Q4H PRN PRN Reason: Headache/Fever or Pain Last Admin: 05/22/17 08:37 Dose: 650 mg Hydrocodone Bitart/Acetaminophen ([place] 5/325) 1 tab PO Q4H PRN PRN Reason: Moderate Pain (4-6) Last Admin: 05/21/17 14:51 Dose: 1 tab Al Hydroxide/Mg Hydroxide (Maalox) 30 ml PO Q6H PRN PRN Reason: Heartburn or Indigestion Artificial Tears (Tears Naturale) 0 drop EA EYE PRN PRN PRN Reason: Dry Eyes Aspirin (Aspirin Chewable) 81 mg PO DAILY [facility] Last Admin: 05/22/17 08:48 Dose: Not Given Benzonatate (Tessalon) 100 mg PO Q4H PRN PRN Reason: Cough Bupropion HCl (Wellbutrin Sr) 150 mg PO DAILY [facility] Last Admin: 05/22/17 10:10 Dose: Not Given Donepezil HCl (Aricept) 10 mg PO HS [facility] Last Admin: 05/22/17 20:40 Dose: 10 mg Enoxaparin Sodium (Lovenox) 40 mg SC 0900 [facility] Last Admin: 05/22/17 08:54 Dose: 40 mg Escitalopram Oxalate (Lexapro) 20 mg PO DAILY [facility] Last Admin: 05/22/17 08:53 Dose: Not Given Famotidine (Pepcid) 20 mg PO BID [facility] Last Admin: 05/22/17 20:40 Dose: 20 mg Guaifenesin (Robitussin Sf) 200 mg PO Q4H PRN PRN Reason: Cough Hydralazine HCl (Apresoline) 10 mg SLOW IVP Q4H PRN PRN Reason: Systolic BP > 180 Last Admin: 05/22/17 08:38 Dose: 10 mg Vancomycin HCl 750 mg/ Sodium (Chloride) 250 mls @ 250 mls/hr IVPB Q12HR [facility] Last Admin: 05/22/17 20:38 Dose: 250 mls Ceftriaxone Sodium 2 gm/ (Sodium Chloride) 100 mls @ 200 mls/hr IVPB Q24HR@ 0800 [facility] Last Admin: 05/22/17 08:32 Dose: 100 mls Potassium Chloride 40 meq/ (Sodium Chloride) 520 mls @ 130 mls/hr IVPB NOW [facility] Stop: 05/23/17 12:00 Last Admin: 05/23/17 07:51 Dose: 520 mls Levothyroxine Sodium (Synthroid) 75 mcg PO 0600 [facility] Last Admin: 05/23/17 06:26 Dose: 75 mcg Loperamide HCl (Imodium) 2 mg PO PRN PRN PRN Reason: Diarrhea/Loose Stools Loratadine (Claritin) 10 mg PO DAILYPRN PRN PRN Reason: Sinus Symptoms Losartan Potassium (Cozaar) 25 mg PO [facility] Last Admin: 05/22/17 20:38 Dose: 25 mg Magnesium Hydroxide (Milk Of Magnesium) 30 ml PO DAILYPRN PRN PRN Reason: Constipation Mineral Oil/White Petrolatum (Eucerin Cream) 0 gm TOP BIDPRN PRN PRN Reason: Dry Skin Miscellaneous Medication (Pharmacy To Dose) 0 each IVPB ASDIR PRN PRN Reason: Pharmacy to Dose VANCOMYCIN Ondansetron HCl (Zofran Odt) 4 mg PO Q6H PRN PRN Reason: Nausea/Vomiting Ondansetron HCl (Zofran) 4 mg IVP Q6H PRN PRN Reason: Nausea/Vomiting Phenol (Chloraseptic [place] 180 Ml Bot) 0 ml PO PRN PRN PRN Reason: Sore Throat Polyethylene Glycol (Miralax) 17 gm PO DAILY [facility] Last Admin: 05/22/17 08:33 Dose: Not Given Pregabalin (Lyrica) 75 mg PO [facility] Last Admin: 05/22/17 20:39 Dose: 75 mg Saccharomyces Boulardii (Florastor) 250 mg PO DAILY [facility] Last Admin: 05/22/17 10:11 Dose: Not Given Senna (Senokot) 2 tab PO HSPRN PRN PRN Reason: Constipation Simethicone (Mylicon Chewable) 80 mg PO TID PRN PRN Reason: Gas Pain Sodium Chloride ([place] Nasal [place] 0.65%) 0 ml EA NARE QIDPRN PRN PRN Reason: Nasal Congestion Tramadol HCl (Ultram) 50 mg PO Q6H PRN PRN Reason: Pain 1-3 Last Admin: 05/22/17 05:44 Dose: 50 mg Zolpidem Tartrate (Ambien) 5 mg PO HSPRN PRN PRN Reason: Insomnia
[2017-05-23] MEDS: cefTRIAXone\\ROCEPHIN 2 GM in Sodium Chloride 0.9% 100 ML IVPB SCH (11:12)
[2017-05-23] MEDS: Escitalopram Oxalate 20 mg Tablet PO SCH (11:15)
[2017-05-23] MEDS: Saccharomyces boulardii 250 MG CAP PO SCH (11:15)
[2017-05-23] MEDS: Famotidine 20 MG TAB PO SCH ×2 (11:16→20:25)
[2017-05-23] MEDS: Enoxaparin Sodium 40 MG/0.4 ML SYRINGE SC SCH (11:16)
[2017-05-23] MEDS: Bupropion 150 MG SR TAB PO SCH (11:16)
[2017-05-23] MEDS: Polyethylene Glycol 3350 17 GM Packet PO SCH (11:16)
[2017-05-23] MEDS: traMADol HCl 50 MG TAB PO PRN ×2 (11:40→20:25)
--- NOTE | 2017-05-23 13:15 | SPC ---
ULTRASOUND GUIDED LEFT UPPER EXTREMITY PICC LINE PLACEMENT: 05/23/2017 HISTORY: Sepsis. The patient needs long-term IV antibiotics. TECHNIQUE: After informed consent was obtained, the patient was placed on the angiography table in the supine po sition. The left upper extremity was meticulously prepped and draped in the usual sterile fashion. An appropriate access site was determined with ultrasound guidance. The skin and subcutaneous tissues were infiltrated with buffered 1% Lidocaine for local anesthesia at the intended puncture site. The left basilic vein was accessed utilizing the micropuncture techniqu e and concurrent real-time ultrasound guidance. The 5 Serbian peel-away sheath was placed. The wood ter was measured and cut to the appropriate length. The catheter was placed over the guide wire with the tip position overlying the distal SVC, near the cavoatrial junction. The guide wire and peel-away sheath were removed. The catheter was accessed an d aspirated/flushed easily. The catheter was secured to the skin utilizing a StatLock device, and a dry, sterile dressing was placed. The patient tolerated the procedure well and without immediate complication. FLUOROSCOPY: Total fluoroscopy time is 0.4 minutes with a total dose of 673 mGy per cm2. FINDINGS: Technically successful placement of a single lumen, 5 Serbian, 39 cm PICC line via the left basilic ve in. The tip of the catheter overlies the distal SVC. IMPRESSION: Technically successful left upper extremity peripherally inserted central catheter line placement. POS: [facility]
[2017-05-23] MEDS: Vancomycin HCl 750 MG in Sodium Chloride 0.9% 250 ML 250 ML IVPB SCH ×2 (14:00→20:26)
[2017-05-23] MEDS: Acetaminophen 325 MG TAB PO PRN (18:07)
[2017-05-23] MEDS: Losartan 25 MG TAB PO SCH (20:24)
[2017-05-23] MEDS: Pregabalin 75 MG CAP PO SCH (20:25)
[2017-05-23] MEDS: Donepezil HCl 10 MG TAB PO SCH (20:25)
[2017-05-23 20:46] LABS: Anion Gap 13 mmol/L (10-20); BUN (Urea Nitrogen) 20 mg/dL (9.8-20.1); Calc. Creatinine Clearance 70 mL/min (70-130); Calcium 7.9 mg/dL (7.8-10.44); Carbon Dioxide 20 mmol/L (23-31); Chloride 106 mmol/L (98-107); Estimated GFR-MDRD Greater than 90; Glucose 104 mg/dL (83-110); Potassium 3.3 mmol/L (3.5-5.1); Sodium 136 mmol/L (136-145)
[2017-05-24 04:56] LABS: #Lymphocytes 0.8 thou/uL (1.20-3.40); #Monocytes 0.3 thou/uL (0.11-0.59); #Neutrophils 14.1 thou/uL (1.40-6.50); %Eosinophils 0.3 % (0.0-10.0); %Monocytes 2.1 % (0.0-10.0); %Neutrophils 92.6 % (42.0-75.0); Hemoglobin 10.1 g/dL (12.0-16.0); Mean Corpuscular HGB CONC 31.9 g/dL (32.0-36.0); Mean Corpuscular Hemoglobin 31.1 pg (27.0-31.0); Mean Corpuscular Volume 97.3 fl (81.0-99.0); Mean Platelet Volume 8.3 fL (7.4-10.4); Platelet Count 260 thou/uL (130-400); RBC Distribution Width 14.1 % (11.5-14.5); Red Blood Cell (RBC) Count 3.26 mill/uL (4.20-5.40); White Blood Cell (WBC) Count 15.2 thou/uL (4.8-10.8)
--- NOTE | 2017-05-24 04:58 | CON ---
DATE OF CONSULTATION: 05/23/2017 HISTORY OF PRESENT ILLNESS: Ms. Summers is an 89-year-old female. She tells me she was hospitalized before [place] with what she describes as a knee fracture. Reviewing records, she actually on 04/29/2017 had a long nail placed in an intramedullary left trocha nteric hip fracture by Dr. Sanchez. She was hospitalized until 05/02/2017, 3 days after surgery and sent to long term. It appears she had a chest radiograph done the day after discharge that was unremarkable. 05/18/2017, she had a chest radiograph done, which showed increased interstitial markings at her lung bases. She subsequently was admitted on 05/18/[address] Patel. She was transferred to the intermediate care unit today. I was consulted by the nursing staff. PAST MEDICAL HISTORY: Remarkable for 1. Hypothyroidism. 2. Arthritis. 3. Reported history of dementia, although she gave me a fairly good history of her recent illness ot her than getting the knee versus hip issue wrong. 4. She has a history of hypertension. 5. She has a history of anxiety and depression. PAST SURGICAL HISTORY: She has had a bladder suspension, colonoscopy, cataract surgery, appendectomy , hysterectomy, and tonsillectomy in the past. She tells me she has never really become independently ambulatory since her surgery. She was apparently febrile on presentation. FAMILY HISTORY: Positive for vascular disease. SOCIAL HISTORY: She is a nonsmoker, nondrinker, and does not use drugs. ALLERGIES: She has no reported history of drug allergies. MEDICATIONS: Have been reviewed. REVIEW OF SYSTEMS: A ten-point review os systems otherwise completely negative with the exception of the complaints above. Her only complaint above is that she is coughing and feels congested. PHYSICAL EXAMINATION: VITAL SIGNS: She is afebrile, heart rate is 91, respiratory rate is 18, oximetry is 93, blood pressu re 156/74. GENERAL: Her appearance is appropriate for age. HEENT: Pupils were equal. Sclerae are anicteric. NECK: Supple. CHEST: Remarkable for diffuse rhonchi. HEART: Regular rhythm. ABDOMEN: Soft and nontender. EXTREMITIES: Without clubbing, cyanosis, or edema. IMAGING: Chest radiograph is reviewed. She has a right infrahilar infiltrate on x-ray yesterday. She has not had progression of her infiltrates since admission. She had a head CT done yesterday. There is no subdural seen. No bleeding was seen. Chronic ischemic changes were seen. IMPRESSION: Retained secretions. I do not feel she has new pneumonia. I feel the biggest issue is that she is not adequately clearing her secretions. She has, actually when encouraged, quite a stron g cough. Her white count is 14.7, hemoglobin is 9.9, platelets are 248,000. Electrolytes were unrem arkable. She remains a full code at 89 years of age with dementia. She has not recovered from her h ip fracture yet and likely will be significantly weaker after this illness if she survives this. The re is no indication for intubation at this time. I will add nebulizer treatments if it does not appear these have been ordered. EzPAP may be helpful. Steroids may be helpful. I will be happy to follow with the other physicians caring for her. She is on vancomycin. I doubt there is a pathogen involved in her pulmonary issues that require vancomycin . This will be discontinued. I have reviewed her microbiology. She had 1 positive Staph aureus blo od culture and 1 negative one. These were not repeated. She did have urine that was positive for St aph aureus. It appears this is via Obrien. It is unclear whether or not the Obrien was colonized. At her advanced age, I will be cautious to find a good reason to continue the vancomycin. I would repe at blood and urine cultures. This is a 50-minute consult. Greater than 50% of the time was spent on the unit coordinating care, r eviewing radiographs, revealing lab work, and available records.
[2017-05-24 05:17] LABS: Anion Gap 14 mmol/L (10-20); BUN (Urea Nitrogen) 19 mg/dL (9.8-20.1); Calc. Creatinine Clearance 72 mL/min (70-130); Calcium 8.1 mg/dL (7.8-10.44); Carbon Dioxide 19 mmol/L (23-31); Chloride 106 mmol/L (98-107); Estimated GFR-MDRD Greater than 90; Glucose 101 mg/dL (83-110); Potassium 3.5 mmol/L (3.5-5.1); Sodium 135 mmol/L (136-145)
[2017-05-24] MEDS: Levothyroxine Sodium 75 MCG TAB PO SCH (06:18)
[2017-05-24 08:09] LABS: Vancomycin, Trough 16.2 ug/mL
[2017-05-24] MEDS: cefTRIAXone\\ROCEPHIN 2 GM in Sodium Chloride 0.9% 100 ML IVPB SCH (08:42)
[2017-05-24] MEDS: Bupropion 150 MG SR TAB PO SCH (08:42)
[2017-05-24] MEDS: Vancomycin HCl 750 MG in Sodium Chloride 0.9% 250 ML 250 ML IVPB SCH (08:42)
[2017-05-24] MEDS: Polyethylene Glycol 3350 17 GM Packet PO SCH (08:43)
[2017-05-24] MEDS: Enoxaparin Sodium 40 MG/0.4 ML SYRINGE SC SCH (08:43)
[2017-05-24] MEDS: Saccharomyces boulardii 250 MG CAP PO SCH (08:43)
[2017-05-24] MEDS: Famotidine 20 MG TAB PO SCH ×2 (08:43→21:46)
[2017-05-24] MEDS: guaiFENesin ER 600 MG TAB PO SCH ×2 (08:43→21:46)
[2017-05-24] MEDS: Escitalopram Oxalate 20 mg Tablet PO SCH (08:43)
[2017-05-24 13:28] VITALS: BMI 24.8
[2017-05-24] MEDS ORDERED: Metoprolol Tartrate 25 MG TAB PO SCH (13:30)
[2017-05-24 16:57] LABS: Subtype Influenza A PCR NEGATIVE
--- NOTE | 2017-05-24 18:39 | PDOC.PN ---
- Subjective Encounter Start Date: 05/24/17 Encounter Start Time: 14:30 Patient seen and examined. No new complaints. No overnight events - Objective Resuscitation Status: Resuscitation Status FULL:Full Resuscitation MAR Reviewed: Yes Vital Signs & Weight: Vital Signs (12 hours) Temp Pulse Pulse Pulse Resp BP BP 05/24/17 16:00 97.3 F L 86 17 05/24/17 15:15 96 97 168/92 H 163/90 H 05/24/17 11:05 99.2 F 82 20 05/24/17 08:00 99.4 F 82 20 05/24/17 07:44 99.4 F 82 20 BP Pulse Ox 05/24/17 16:00 177/91 H 96 05/24/17 15:15 05/24/17 11:05 135/91 H 93 L 05/24/17 08:00 93 L 05/24/17 07:44 174/74 H 97 Weight Admit Weight 154 lb Weight 158 lb 14.4 oz I&O: 05/23/17 05/24/17 05/25/17 06:59 06:59 06:59 Intake Total 1090 2540 360 Output Total 950 1075 550 Balance 140 1465 -190 Result Diagrams: 05/24/17 03:46 05/24/17 03:46 EKG Reviewed by me: Yes (Tele SR, 7 beats NSVT) Phys Exam - Physical Examination Constitutional: NAD Respiratory: no wheezing, no rhonchi Cardiovascular: RRR, no rub Gastrointestinal: soft, non-tender, positive bowel sounds Musculoskeletal: no edema Neurological: moves all 4 limbs Dx/Plan - Plan DVT proph w/lovenox, DVT proph w/SCDs IMPRESSION: 1. Sepsis with acute organ dysfunction due to Pneumonia 2. HCA pneumonia ?Pneumococcus 3. Staph bacteremia - repeat cultures negative 4. NSVT 5. Toxic Metabolic Encephalopathy 6. Hypokalemia/Hyponatremia 5. HTN/Anxiety-depression/Hypothyroidism/Elevated troponins due to sepsis/Mild Protein Calorie Malnutrition/Recent hip fracture/Swallow dysfunction PLAN: * DC Vancomycin * Cont Ceftriaxone * AM labs * Cardio eval for NSVT * Echo in the past normal EF * Add low dose betablockers * On Steroids * ID/Pulm following * AM labs Review of Systems - Review of Systems Respiratory: negative: Cough, Dry, Shortness of Breath, Hemoptysis, SOB with Excertion, Pleuritic Pain, Sputum, Wheezing Cardiovascular: negative: chest pain, palpitations, orthopnea, paroxysmal nocturnal dyspnea, edema, light headedness - Medications/Allergies Allergies/Adverse Reactions: Allergies Allergy/AdvReac Type Severity Reaction Status Date / Time No Known Allergies Allergy Verified 04/28/17 11:45 Medications: Current Medications Acetaminophen (Tylenol) 650 mg PO Q4H PRN PRN Reason: Headache/Fever or Pain Last Admin: 05/23/17 18:07 Dose: 650 mg Hydrocodone Bitart/Acetaminophen ([place] 5/325) 1 tab PO Q4H PRN PRN Reason: Moderate Pain (4-6) Last Admin: 05/21/17 14:51 Dose: 1 tab Al Hydroxide/Mg Hydroxide (Maalox) 30 ml PO Q6H PRN PRN Reason: Heartburn or Indigestion Albuterol/Ipratropium (Duoneb) 3 ml EZPAP Q4H PRN PRN Reason: SOB &/or Wheezing Artificial Tears (Tears Naturale) 0 drop EA EYE PRN PRN PRN Reason: Dry Eyes Aspirin (Aspirin Chewable) [address] [facility] Last Admin: 05/24/17 08:43 Dose: 81 mg Benzonatate (Tessalon) 100 mg PO Q4H PRN PRN Reason: Cough Bupropion HCl (Wellbutrin Sr) [address] [facility] Last Admin: 05/24/17 08:42 Dose: 150 mg Donepezil HCl (Aricept) [address] [facility] Last Admin: 05/23/17 20:25 Dose: 10 mg Enoxaparin Sodium (Lovenox) [address] [facility] Last Admin: 05/24/17 08:43 Dose: 40 mg Escitalopram Oxalate (Lexapro) [address] [facility] Last Admin: 05/24/17 08:43 Dose: 20 mg Famotidine (Pepcid) [address] [facility] Last Admin: 05/24/17 08:43 Dose: 20 mg Guaifenesin (Robitussin Sf) 200 mg PO Q4H PRN PRN Reason: Cough Guaifenesin (Mucinex) [address] [facility] Last Admin: 05/24/17 08:43 Dose: 600 mg Hydralazine HCl (Apresoline) 10 mg SLOW IVP Q4H PRN PRN Reason: Systolic BP > 180 Last Admin: 05/22/17 08:38 Dose: 10 mg Ceftriaxone Sodium 2 gm/ (Sodium Chloride) 100 mls @ 200 mls/hr IVPB Q24HR@ 0800 [facility] Last Admin: 05/24/17 08:42 Dose: 100 mls Levothyroxine Sodium (Synthroid) [address] [facility] Last Admin: 05/24/17 06:18 Dose: 75 mcg Loperamide HCl (Imodium) 2 mg PO PRN PRN PRN Reason: Diarrhea/Loose Stools Loratadine (Claritin) 10 mg PO DAILYPRN PRN PRN Reason: Sinus Symptoms Losartan Potassium (Cozaar) 25 mg PO [facility] Last Admin: 05/23/17 20:24 Dose: 25 mg Magnesium Hydroxide (Milk Of Magnesium) 30 ml PO DAILYPRN PRN PRN Reason: Constipation Methylprednisolone Sodium Succinate (Solu-Medrol) [address] [facility] Last Admin: 05/24/17 18:22 Dose: 20 mg Metoprolol Tartrate (Lopressor) 12.[address] [facility] Mineral Oil/White Petrolatum (Eucerin Cream) 0 gm TOP BIDPRN PRN PRN Reason: Dry Skin Miscellaneous Medication (Pharmacy To Dose) 0 each IVPB ASDIR PRN PRN Reason: Pharmacy to Dose VANCOMYCIN Ondansetron HCl (Zofran Odt) 4 mg PO Q6H PRN PRN Reason: Nausea/Vomiting Ondansetron HCl (Zofran) 4 mg IVP Q6H PRN PRN Reason: Nausea/Vomiting Phenol (Chloraseptic [place] 180 Ml Bot) 0 ml PO PRN PRN PRN Reason: Sore Throat Polyethylene Glycol (Miralax) [address] [facility] Last Admin: 05/24/17 08:43 Dose: 17 gm Pregabalin (Lyrica) [address] [facility] Last Admin: 05/23/17 20:25 Dose: 75 mg Saccharomyces Boulardii (Florastor) [address] [facility] Last Admin: 05/24/17 08:43 Dose: 250 mg Senna (Senokot) 2 tab PO HSPRN PRN PRN Reason: Constipation Simethicone (Mylicon Chewable) 80 mg PO TID PRN PRN Reason: Gas Pain Sodium Chloride ([place] Nasal [place] 0.65%) 0 ml EA NARE QIDPRN PRN PRN Reason: Nasal Congestion Tramadol HCl (Ultram) 50 mg PO Q6H PRN PRN Reason: Pain 1-3 Last Admin: 05/23/17 20:25 Dose: 50 mg
[2017-05-24] MEDS: Pregabalin 75 MG CAP PO SCH (21:45)
[2017-05-24] MEDS: Losartan 25 MG TAB PO SCH (21:46)
[2017-05-24] MEDS: Metoprolol Tartrate 25 MG TAB PO SCH (21:46)
[2017-05-24] MEDS: Donepezil HCl 10 MG TAB PO SCH (21:46)
--- NOTE | 2017-05-24 21:56 | PRG ---
DATE OF SERVICE: 05/24/2017 SUBJECTIVE: I have not seen any family at the bedside. She says she feels okay, although she does n ot report being much better. She still has diffuse coarse rhonchi. She has a reasonable cough but d oes not cough anything up. OBJECTIVE: VITAL SIGNS: She is afebrile, heart rate is 82, respiratory rate is 18, oximetry is 95 on 2 liters, blood pressure 160/90. HEART: Regular rhythm. ABDOMEN: Soft. LABORATORY DATA: White count 15.2, hemoglobin 10.1, platelets 260,000. Sodium 135, potassium 3.5, c hloride 106, bicarbonate 19, BUN 19, creatinine 0.6. IMPRESSION: 1. Bronchitis with retained secretions. The area on her chest x-ray that could be accounting representative of pneumonia is quite small. 2. Advanced age. 3. Full code. 4. Failure to recover from a hip surgery. I am very concerned that this weakness and deconditioning will lead to her demise. She has 1/2 blood cultures positive for Staph and 2/2 blood cultures that are negative since then. I do not feel that this is Staph aureus doing all of this, but it certainly could be. My biggest concern is her weakness and her failure to recover at all since her hip fracture. At 89 y ears of age, it is unlikely that she will recover and more likely that she will succumb to a respirat ory complication. I would like to meet with her daughter. Apparently, her daughter is in [place] an d has not been at the bedside. We need to contact her daughter and inform them of her serious condit ion and also discuss code status. I do not think Ms. Summers can make decisions regarding code status .
[2017-05-25] MEDS: Levothyroxine Sodium 75 MCG TAB PO SCH (06:28)
[2017-05-25 07:46] LABS: #Monocytes 0.4 thou/uL (0.11-0.59); #Neutrophils 12.3 thou/uL (1.40-6.50); %Eosinophils 0.2 % (0.0-10.0); %Lymphocytes 7.2 % (21.0-51.0); %Monocytes 2.8 % (0.0-10.0); %Neutrophils 89.8 % (42.0-75.0); Hemoglobin 9.9 g/dL (12.0-16.0); Mean Corpuscular HGB CONC 33.1 g/dL (32.0-36.0); Mean Corpuscular Hemoglobin 31.7 pg (27.0-31.0); Mean Corpuscular Volume 95.8 fl (81.0-99.0); Mean Platelet Volume 8.1 fL (7.4-10.4); Platelet Count 301 thou/uL (130-400); RBC Distribution Width 13.9 % (11.5-14.5); Red Blood Cell (RBC) Count 3.12 mill/uL (4.20-5.40); White Blood Cell (WBC) Count 13.8 thou/uL (4.8-10.8)
[2017-05-25 08:13] LABS: ALT (SGPT) 40 U/L (8-55); AST (SGOT) 48 U/L (5-34); Albumin 2.5 g/dL (3.4-4.8); Alkaline Phosphatase 123 U/L (40-150); Anion Gap 11 mmol/L (10-20); BUN (Urea Nitrogen) 27 mg/dL (9.8-20.1); Bilirubin, Total 0.8 mg/dL (0.2-1.2); Calc. Creatinine Clearance 67 mL/min (70-130); Calcium 8.2 mg/dL (7.8-10.44); Carbon Dioxide 24 mmol/L (23-31); Chloride 105 mmol/L (98-107); Estimated GFR-MDRD 86; Globulin 3.2 g/dL (2.4-3.5); Glucose 117 mg/dL (83-110); Phosphorus 3.5 mg/dL (2.3-4.7); Potassium 3.2 mmol/L (3.5-5.1); Protein, Total 5.7 g/dL (6.0-8.3); Sodium 137 mmol/L (136-145)
[2017-05-25] MEDS: Metoprolol Tartrate 25 MG TAB PO SCH (08:15)
[2017-05-25] MEDS: Saccharomyces boulardii 250 MG CAP PO SCH (08:15)
[2017-05-25] MEDS: Escitalopram Oxalate 20 mg Tablet PO SCH (08:15)
[2017-05-25] MEDS: Bupropion 150 MG SR TAB PO SCH (08:15)
[2017-05-25] MEDS: cefTRIAXone\\ROCEPHIN 2 GM in Sodium Chloride 0.9% 100 ML IVPB SCH (08:16)
[2017-05-25] MEDS: Famotidine 20 MG TAB PO SCH (08:16)
[2017-05-25] MEDS: Polyethylene Glycol 3350 17 GM Packet PO SCH (08:16)
[2017-05-25] MEDS: guaiFENesin ER 600 MG TAB PO SCH (08:16)
[2017-05-25] MEDS: Enoxaparin Sodium 40 MG/0.4 ML SYRINGE SC SCH (08:16)
--- NOTE | 2017-05-25 14:21 | PRG ---
DATE OF SERVICE: 05/25/2017 SUBJECTIVE: Ms. Summers is less alert today. She is also hallucinating. I could awaken her, but she was mumbling. She is having sense really did not apply to what was going on. OBJECTIVE: VITAL SIGNS: She is afebrile, heart rate 60, respiratory rate is 18. She still has diffuse rhonchi. Saturations 90% on 2 liters, blood pressure 150/63. HEART: Regular rhythm. ABDOMEN: Soft. She has PICC line in. White count 13.8, hemoglobin 9.9, platelets 301,000. Sodium 137, potassium 3. 2, chloride 105, bicarb 24, BUN 27, creatinine 0.65. IMPRESSION: 1. Impending respiratory failure. 2. Anorexia, this has been going on since her hip fracture. I contacted her daughter by phone in [facility] and her daughter informed me that she has been declining ever since she was in the hospital for fracture. Her p.o. intake has been poor. Apparently, she is having orthostatic hypotension for a w kobuk after she got back to her rehab environment, so they did not let her get out of bed. Eventually, her blood pressure meds were stopped and she was able to sit up, but she was not exercising. She presented back here and has been bedridden since. Unfortunately, my film sounds this is the end of her life. She has become more cachectic and weaker over the last 3 days. She is unable to clear secretions at this point in time. Her daughter wanted to have comfort care. She prefers that she be transferred back to [facility] and hospice, I feel this is perfectly appropriate. There are no other family members making decisions as the daughter is an only child. I agree with her decision.
--- NOTE | 2017-05-25 21:57 | PDOC.PN ---
- Subjective Encounter Start Date: 05/25/17 Encounter Start Time: 17:30 Patient seen and examined. No new complaints. No overnight events - Objective Resuscitation Status: Resuscitation Status DNR:Do Not Resuscitate MAR Reviewed: Yes Vital Signs & Weight: Vital Signs (12 hours) Temp Pulse Resp BP BP Pulse Ox 05/25/17 19:20 97.6 F 91 24 H 168/61 H 93 L 05/25/17 15:40 97.8 F 18 L 22 H 172/72 H 93 L 05/25/17 11:04 96.8 F L 62 18 162/66 H 90 L Weight Admit Weight 154 lb Weight 158 lb 14.4 oz I&O: 05/24/17 05/25/17 05/26/17 06:59 06:59 06:59 Intake Total 2540 580 750 Output Total 1075 1200 350 Balance 1465 -620 400 Result Diagrams: 05/25/17 07:30 05/25/17 07:30 EKG Reviewed by me: Yes (Tele SR) Phys Exam - Physical Examination Constitutional: NAD Respiratory: no wheezing, no rhonchi Cardiovascular: RRR, no rub Gastrointestinal: soft, non-tender, positive bowel sounds Musculoskeletal: no edema Dx/Plan - Plan DVT proph w/SCDs IMPRESSION: 1. Sepsis with acute organ dysfunction due to Pneumonia 2. HCA pneumonia ?Pneumococcus 3. Staph bacteremia - repeat cultures negative 4. NSVT 5. Toxic Metabolic Encephalopathy 6. Hypokalemia/Hyponatremia 5. HTN/Anxiety-depression/Hypothyroidism/Elevated troponins due to sepsis/Mild Protein Calorie Malnutrition/Recent hip fracture/Swallow dysfunction PLAN: * on Comfort care - Await Hospice setup * Transfer to medical * Dc planning * Atbx dced Review of Systems - Review of Systems Cardiovascular: negative: chest pain, palpitations, orthopnea, paroxysmal nocturnal dyspnea, edema, light headedness Gastrointestinal: negative: Nausea, Vomiting, Abdominal Pain, Diarrhea, Constipation, Melena, Hematochezia - Medications/Allergies Allergies/Adverse Reactions: Allergies Allergy/AdvReac Type Severity Reaction Status Date / Time No Known Allergies Allergy Verified 04/28/17 11:45 Medications: Current Medications Acetaminophen (Tylenol) 650 mg PO Q4H PRN PRN Reason: Headache/Fever or Pain Last Admin: 05/23/17 18:07 Dose: 650 mg Al Hydroxide/Mg Hydroxide (Maalox) 30 ml PO Q6H PRN PRN Reason: Heartburn or Indigestion Artificial Tears (Tears Naturale) 0 drop EA EYE PRN PRN PRN Reason: Dry Eyes Aspirin (Aspirin Chewable) 81 mg PO DAILY [facility] Last Admin: 05/25/17 08:15 Dose: 81 mg Benzonatate (Tessalon) 100 mg PO Q4H PRN PRN Reason: Cough Mineral Oil/White Petrolatum (Eucerin Cream) 0 gm TOP BIDPRN PRN PRN Reason: Dry Skin Miscellaneous Medication (Pharmacy To Dose) 0 each IVPB ASDIR PRN PRN Reason: Pharmacy to Dose VANCOMYCIN Ondansetron HCl (Zofran Odt) 4 mg PO Q6H PRN PRN Reason: Nausea/Vomiting Ondansetron HCl (Zofran) 4 mg IVP Q6H PRN PRN Reason: Nausea/Vomiting
--- NOTE | 2017-05-26 10:48 | PDOC.PN ---
- Subjective Encounter Start Date: 05/26/17 Encounter Start Time: 10:45 Confortable, confused. - Objective Resuscitation Status: Resuscitation Status DNR:Do Not Resuscitate MAR Reviewed: Yes Vital Signs & Weight: Vital Signs (12 hours) Temp Pulse Resp BP Pulse Ox 05/26/17 07:28 97.6 F 89 28 H 195/74 H 94 L 05/26/17 00:00 98.2 F 88 20 156/73 H 94 L Weight Admit Weight 154 lb Weight 158 lb 14.4 oz I&O: 05/25/17 05/26/17 05/27/17 06:59 06:59 06:59 Intake Total 580 950 Output Total 1200 650 Balance -620 300 Result Diagrams: 05/25/17 07:30 05/25/17 07:30 Phys Exam - Physical Examination HEENT: sclera anicteric Neck: no JVD Respiratory: clear to auscultation bilateral Cardiovascular: RRR Gastrointestinal: soft Musculoskeletal: no edema Neurological: moves all 4 limbs Psychiatric: normal affect (Confused.) Dx/Plan - Plan -: Continue confort care. * .
--- NOTE | 2017-05-26 14:57 | DIS ---
DATE OF ADMISSION: 05/18/2017 DATE OF DISCHARGE: 05/26/2017 DIAGNOSES: Sepsis, acute encephalopathy, elevated troponin secondary to demand ischemia, abnormal li neri function tests, hyponatremia, healthcare associated pneumonia, hypertension, hypothyroidism, liang le dementia, fibromyalgia, physical deconditioning, anxiety, depression. CONSULTANTS: Dr. Montalvo and Dr. Salguero. PROCEDURES: Chest x-ray, pelvis x-ray, CT of the brain, placement of PICC line, IV administration of antibiotics, course of hospitalization uncomplicated; however, the patient prognosis was determined to be very poor and she was transferred to palliative care with hospice for 2 days. PHYSICAL EXAMINATION: Please refer to patient's medical work on the progress note section. The nayeli ent is being discharged with hospice discharge. DISCHARGE TIME: 32 minutes.
[2017-05-26] MEDS ORDERED: Furosemide 100 MG/10 ML VIAL SLOW IVP SCH (17:15)
--- NOTE | 2017-05-26 17:42 | RAD ---
CHEST ONE VIEW 05/26/17 HISTORY: Shortness of breath. COMPARISON: Chest one view 05/22/17. FINDINGS: New PICC has been placed with tip at the inferior SVC. Increased numerous perihilar as well as periph eral opacities. New small effusions. The cardiac silhouette is obscured. No pneumothorax. IMPRESSION: Worsening air space opacities concerning for worsening pneumonia. Followup recommended. POS: [facility]
[2017-05-26] MEDS: Lorazepam 2 MG/ML VIAL SLOW IVP PRN (18:00)
[2017-05-27] MEDS: Lorazepam 2 MG/ML VIAL SLOW IVP PRN ×2 (00:36→10:08)
[2017-05-27 05:13] LABS: Anion Gap 16 mmol/L (10-20); BUN (Urea Nitrogen) 26 mg/dL (9.8-20.1); Calc. Creatinine Clearance 63 mL/min (70-130); Calcium 8.1 mg/dL (7.8-10.44); Carbon Dioxide 24 mmol/L (23-31); Chloride 105 mmol/L (98-107); Estimated GFR-MDRD 80; Glucose 104 mg/dL (83-110); Sodium 142 mmol/L (136-145)
[2017-05-27 05:26] LABS: Potassium 2.7 mmol/L (3.5-5.1)
--- NOTE | 2017-05-27 08:12 | PDOC.PN ---
- Subjective Encounter Start Date: 05/27/17 Encounter Start Time: 08:00 - Objective Resuscitation Status: Resuscitation Status DNR:Do Not Resuscitate MAR Reviewed: Yes Vital Signs & Weight: Vital Signs (12 hours) Temp Pulse Resp BP Pulse Ox 05/27/17 05:28 99.1 F 96 34 H 155/72 H 81 L 05/27/17 04:11 91 L Weight Admit Weight 154 lb Weight 158 lb 14.4 oz I&O: 05/26/17 05/27/17 05/28/17 06:59 06:59 06:59 Intake Total 950 Output Total 650 2950 Balance 300 -2950 Result Diagrams: 05/25/17 07:30 05/27/17 03:58 Phys Exam - Physical Examination Constitutional: NAD HEENT: sclera anicteric Neck: no JVD Respiratory: clear to auscultation bilateral Cardiovascular: RRR Gastrointestinal: soft Musculoskeletal: edema present Neurological: moves all 4 limbs Dx/Plan - Plan * . No acute change.. Being DC.
[2017-05-27 08:28] VITALS: BP 181/70; TEMP 98.2
[2017-05-27] MEDS ORDERED: Morphine 2 MG/ML SYRINGE SLOW IVP SCH (08:45)
--- NOTE | 2017-06-02 16:18 | PQF ---
ALIS STEPHENS RICHA MD [id number] CLINICAL DOCUMENTATION CLARIFICATION FORM: POST DISCHARGE Addendum to original discharge summary date: ____ Late entry note date: __ DATE: 06/02/17 ATTN: Dr. Cam Please exercise your independent, professional judgment in responding to the clarification form. Clinical indicators are provided on the bottom of this form for your review Please check appropriate box(s): [ ] UTI please specify if due to or related to (as applicable): [ ] Indwelling catheter [ ] Self-catheterization [ ] Suprapubic catheter [ ] Unable to determine etiology UTI Site: [ ] Kidney [ ] Ureter [ ] Bladder [ ] Urethra [ ] Unable to determine Specify Organism (if known): [ ] Unknown organism [ ] Contaminated urine specimen without UTI [ ] Other diagnosis [ ] Unable to determine In addition, please specify: Present on Admission (POA): [ ] Yes [ ] No [ ] Unable to determine For continuity of documentation, please document condition throughout progress notes and discharge summary. Thank You. CLINICAL INDICATORS - SIGNS / SYMPTOMS / LABS Positive urinalysis Fever Documentation: UTI RISK FACTORS indwelling catheter Debility / custodial resident TREATMENT: Antibiotics IVF Obrien cath removed / changed (This form is maintained as a part of the permanent medical record) 2014 [employer] All Rights Reserved Elly [email or web address] [phone] [email or web address]
--- NOTE | 2017-06-10 15:14 | EKG ---
Test Reason : Blood Pressure : / mmHG Vent. Rate : 096 BPM Atrial Rate : 096 BPM P-R Int : 000 ms QRS Dur : 080 ms QT Int : 326 ms P-R-T Axes : 000 024 018 degrees QTc Int : 411 ms Atrial fibrillation Abnormal ECG Confirmed by AYDEN SCHULTZ MD ([id number]), supervising editor trailer RENATE MONDRAGON ([id number]) on 06/10/2017 3:14:09 PM Referred By: Confirmed By:AYDEN SCHULTZ MD
== END 2017-05-27 10:24 | disposition hospice, inpatient (51) | DRG 871 ==
LOC: ERS 08:54 → ERHOLD 12:34 → 2NO 21:43 → T4-B 05-22 10:40 → IMCU/EMU 05-22 14:56 → T4-A 05-25 19:44
PROVIDERS: ADMIT Internal Medicine; ATTEND Internal Medicine
PROC: 02HV33Z Insertion of Infusion Device into Superior Vena Cava, Percutaneous Approach (ICD-10-PCS; principal; 2017-05-23)
PROC: B5181ZA Fluoroscopy of Superior Vena Cava using Low Osmolar Contrast, Guidance (ICD-10-PCS; 2017-05-23)
DX: A41.01 Sepsis due to Methicillin susceptible Staphylococcus aureus (principal); G93.41 Metabolic encephalopathy; J15.9 Unspecified bacterial pneumonia; E87.1 Hypo-osmolality and hyponatremia; I08.1 Rheumatic disorders of both mitral and tricuspid valves; E44.1 Mild protein-calorie malnutrition; I24.8 Other forms of acute ischemic heart disease; N39.0 Urinary tract infection, site not specified; G30.9 Alzheimer's disease, unspecified; F02.80 Dementia in other diseases classified elsewhere, unspecified severity, without behavioral disturbance, psychotic disturbance, mood disturbance, and anxiety; Z68.24 Body mass index [BMI] 24.0-24.9, adult; Z51.5 Encounter for palliative care; E03.9 Hypothyroidism, unspecified; M79.7 Fibromyalgia; M19.90 Unspecified osteoarthritis, unspecified site; I10 Essential (primary) hypertension; F41.9 Anxiety disorder, unspecified; F32.9 Major depressive disorder, single episode, unspecified; Y95 Nosocomial condition; I16.0 Hypertensive urgency; R63.0 Anorexia; J40 Bronchitis, not specified as acute or chronic; Z98.890 Other specified postprocedural states; E87.6 Hypokalemia; B96.89 Other specified bacterial agents as the cause of diseases classified elsewhere; R65.20 Severe sepsis without septic shock
CPT/HCPCS: 36415; 36569; 51702; 70450; 71045; 72170; 80048; 80053; 80202; 81015; 82140; 82550; 82553; 82607; 82746; 82805; 83605; 83690; 83735; 83880; 84100; 84443; 84484; 85025; 85610; 85730; 87040; 87077; 87086; 87149; 87186; 87798; 87804; 93005; 96361; 96365; 96367; C1751; G8978-GP-CM; G8979-GP-CL; G8987-GO-CM; G8988-GO-CK; G8996-GN-CJ; G8997-GN-CI; J0360; J0696; J1644; J1650; J1940; J1956; J2060; J2270; J2543; J2920; J3370; J3480; J7050; Q0162